=== PATIENT | female | born 1975 | race Caucasian/White ===

== ENCOUNTER 2024-12-19 16:22 | Outpatient (CLI) | payer OTHER, SELFPAY ==
--- NOTE | ~2024-12-19 | XR_ITS ---
HISTORY: pain in rt shoulder COMPARISON: None TECHNIQUE: 2 views of the right shoulder were performed FINDINGS: No acute fracture. The glenohumeral and acromioclavicular joint space is maintained The visualized portion of the adjacent right lung is clear. The humeral head is well seated within the glenoid fossa. IMPRESSION: No acute fracture or anterior dislocation. Reviewed, dictated and finalized at location A.
--- OUTSIDE RECORDS SUMMARY | 2024-12-19 16:33 | XMS_ITS | Encounter Summary ---
Author Organization [facility] Address [address] [place] [address] Care Team Providers Care Hoe Worker Name Role Phone Latasha Thomas [facility] Primary Care Provider + Hank Huang [facility] Primary Care Provide r Lashonda Ponce [facility] Primary Care Provider +1- [phone] Reason for Visit * Reason Onset Date Comments MEDICATION REFILL 04/24/2018 Encounter Details Date Type Department Care Team (Late st Contact Info) Description 04/24/2018 Refill [facility] [address] [address] Jennifer Leary, [facility] [address] [facility] [place] [address] MEDICATION REFILL Social History Tobacco Use Types Packs/Day Years Used Date Smoking Tobacco: Never Smokeless Tobacco: Never Alcohol Use Standard Drinks/Week Comments Yes 0 (1 standard drink = 0.6 oz pur e alcohol) Sex and Gender Information Value Date Recorded Sex Assigned at Female 01/17/2022 9:10 AM CDT Gender Identity Female 01/17/2022 9:10 AM CDT Sexual Orientation Straight 01/17/2022 9: 10 AM CDT documented as of this encounter Miscellaneous Notes * Telephone Encounter - Cynthia Alvarado - 04/25/2018 11:47 AM CDT ..Patient requesting refills for the following: OMEPRAZOLE 20 MG PO TBEC HARSH: 04/15/18 NOV: 05/13/18 Problem List Identified: office visit on 04/15/18 GERD Medication attached per refill protocol/guidlines for further review by provider yes PCP / Resident PCP verified yes Allergies Reviewed yes Pharmacy Reviewed yes Medication details entered yes Please review prior to authorization. Office visit within the last six months yes if not within last 6 months route to GIM-scheduling as well. Office visit greater than 12 months no routed to GIM scheduling ONLY no. * Telephone Encounter - Cynthia Alvarado - 04/25/2018 11:46 AM CDTFrom: Christine Juarez To: Jennifer Leary APRN-CNP Sent: 04/24/2018 12:28 PM CDT Subject: Medication Renewal Request Original authorizing provider: OANH Palomino would like a refill of the following medications: omeprazole EC (PRILOSEC OTC) 20 MG tablet [OANH Palomino] [facility] [id number] [place] [id number] [facility] Comment: documented in this encounter Plan of Treatment Not on file documented as of this encounter Visit Diagnoses Not on filedocumented in this encounter Care Teams Hoe Worker Relationship Specialty Start Date End Date Latasha Thomas APRN-CNP [facility] [place] [address] PCP - General 02/13/18 01/26/21 Hank Huang APRN-CNP [facility] [place] [address] PCP - General 01/27/21 10/23/21 Lashonda Ponce, SALES SUPERINTENDENT-STARCH DUMPER [facility] [place] [address] PCP - General 10/24/21 documented as of this encounter
--- OUTSIDE RECORDS SUMMARY | 2024-12-19 16:33 | XMS_ITS | Encounter Summary ---
Author Organization [facility] Address [address] [facility] [place] [address] Care Team Providers Care Power Truck Driver Name Role Phone Latasha Thomas [facility] Primary Care Provider + Hank Huang [facility] Primary Care Provide r Lashonda Ponce [facility] Primary Care Provider [phone]- [phone] Reason for Visit * Reason Onset Date Comments MEDICATION REFILL 12/03/2020 Encounter Details Date Type Department Care Team (Late st Contact Info) Description 12/03/2020 Refill [facility] [address] [facility] [address] [place] [address] Latasha Thomas, [facility] [address] [facility] [place] [address] MEDICATION REFILL Social History Tobacco Use Types Packs/Day Years Used Date Smoking Tobacco: Never Smokeless Tobacco: Never Alcohol Use Standard Drinks/Week Comments Yes 0 (1 standard drink = 0.6 oz pur e alcohol) Sex and Gender Information Value Date Recorded Sex Assigned at Female 01/17/2022 9:10 AM CDT Gender Identity Female 01/17/2022 9:10 AM CDT Sexual Orientation Straight 01/17/2022 9: 10 AM CDT COVID-19 Exposure Response Date Recorded In the last month, have you been in contact with someone who was confirmed or suspected to have Coronavirus / COVID-19? No / Unsure 11/10/2020 2:20 PM LEAD PORTFOLIO MANAGER documented as of this encounter Miscellaneous Notes * Telephone Encounter - Jud Whitehead - 12/07/2020 9:35 AM CDT 3RD LVM * Telephone Encounter - Jud Whitehead - 12/06/2020 3:29 PM CDT 1ST LVM 2ND MY CHART MESSAGE * Telephone Encounter - Brittany Smith MD - 12/03/2020 5:19 PM CDT Refilled x 1. Please help patient schedule appointment with new provider. * Telephone Encounter - Yasmeen Briceño RN - 12/03/2020 8:40 AM CDT Refill Request Christine Juarez bupropion HARSH: 02/16/20 (sheri) MANDY scheduled: none LRF: 07/28/19 Qty Disp: 180 # of refills: 3 Omeprazole LRF: 02/16/20 QTY: 90 # OF REFILLS: 1 Allergies: No Known Allergies Pended Medication Order: Requested Prescriptions Pending Prescriptions Disp Refills ??? buPROPion SR 12hr (WELLBUTRIN-SR) 150 MG tablet 180 tablet 3 Sig: Take 1 (one) tablet by mouth 2 times daily ??? omeprazole (PRILOSEC) 20 MG capsule 90 capsule 1 Sig: Take 1 (one) capsule by mouth daily before breakfast documented in this encounter Plan of Treatment Not on file documented as of this encounter Visit Diagnoses Diagnosis Depression with anxiety Dysthymic disorder documented in this encounter Care Teams Power Truck Driver Relationship Specialty Start Date End Date Latasha hTomas PAPER STEAMER-AIRLINE PILOT/FIRST OFFICER [address] [place] [address] PCP - General 02/13/18 01/26/21 Hank Huang APRN-AIRLINE PILOT/FIRST OFFICER [address] [place] [address] PCP - General 01/27/21 10/23/21 Lashonda Ponce, PAPER STEAMER-AIRLINE PILOT/FIRST OFFICER [address] [place] [id number] PCP - General 10/24/21 documented as of this encounter
--- OUTSIDE RECORDS SUMMARY | 2024-12-19 16:33 | XMS_ITS | Encounter Summary ---
Author Organization [facility] Address [address] [place] [address] Care Team Providers Care Vegetable Farming Supervisor Name Role Phone Jennifer Leary [facility] Primary Care Provider [phone] [phone] Latasha [facility] Primary Care Provider + Hank Huang [facility] Primary Care Provide r Lashonda Ponce [facility] Primary Care Provider +1- [phone] Reason for Visit * Reason Onset Date Comments MEDICATION REFILL 02/06/2018 Encounter Details Date Type Department Care Team (Late st Contact Info) Description 02/06/2018 Refill [facility] [address] [address] Jennifer Leary [facility] [address] [facility] [place] [address] MEDICATION REFILL Social History Tobacco Use Types Packs/Day Years Used Date Smoking Tobacco: Never Smokeless Tobacco: Never Sex and Gender Information Value Date Recorded Sex Assigned at Female 01/17/2022 9:10 AM CDT Gender Identity Female 01/17/2022 9:10 AM CDT Sexual Orientation Straight 01/17/2022 9: 10 AM CDT documented as of this encounter Miscellaneous Notes * Telephone Encounter - Cha Hernandez - 02/08/2018 10:29 AM CDT 2nd attempt Spoke with patient, scheduled with Latasha Villalobos NP 02/13/2018 * Telephone Encounter - Cha Hernandez - 02/07/2018 12:53 PM CDT 1st attempt to contact patient and assist in scheduling with new PCP. Voicemail left to contact [facility]. Number provided * Telephone Encounter - Oscar Duque - 02/06/2018 2:27 PM CDT Allergies addressed Pharmacy attached Refill request sent per protocol [facility] 10-26-17Jul No next appointment scheduled at this time. * Telephone Encounter - Negrita Tomas - 02/06/2018 7:58 AM CDT Refill request sent to provider per protocol jim reviewed [facility] 11/05/17 NOV NO FOLLOW UP APPOINTMENT MADE AT THIS TIME. documented in this encounter Plan of Treatment Not on file documented as of this encounter Visit Diagnoses Not on filedocumented in this encounter Care Teams Vegetable Farming Supervisor Relationship Specialty Start Date End Date Jennifer Leary APRN-CNP [address] [place] [address] PCP - General Nurse Practitioner 05/16/17 02/12/18 Latasha Thomas APRN-CNP [address] [place] [address] PCP - General 02/13/18 01/26/21 Hank Huang APRN-CNP [address] [place] [address] PCP - General 01/27/21 10/23/21 Lashonda Ponce APRN-FIRE PROTECTION EQUIPMENT TECHNICIAN [address] [place] [address] PCP - General 10/24/21 documented as of this encounter
--- OUTSIDE RECORDS SUMMARY | 2024-12-19 16:33 | XMS_ITS | Clinical Summary ---
Author Organization [facility] Address [address] [place] [id number] Care Team Providers Care Senior Scrum Master Name Role Phone Unavailable Primary Care Provider Unavailabl e Social History Tobacco Use Types Packs/Day Years Used Date Smoking Tobacco: Never Assessed Comments Unknown Sex and Gender Information Value Date Recorded Sex Assigned at Not on file Legal Sex Female 11:35 AM HOME EXTENSION AGENT Gender Identity Not on file Sexual Orientation Not on file Plan of Treatment Health Maintenance Due Date Last Done Comments Hepatitis C Virus (HCV) Screening 1973 TdaP Immunization 1973 Hepatitis B Immunization (1 of 3 - 19+ 3-dose series) 1992 Pap Smear 1994 Cervical Cancer Screening (CCS) 2003 HPV/Cotest 2003 Colonoscopy 2018 Colorectal Cancer Screening 2018 Cologuard 2023 Immunochemical Fecal Occult Blood 2023 Mammogram 2023 Pneumococcal Immunization (5 0+ years) (1 of 1 - PCV) 2023 Zoster Immunization (1 of 2) 2023 Influenza Immunization (#1) 2024 SARS-COV-2 Immunization (2023-25 season) 2024 11/23/2020, 10/21/2020 Respiratory Syncytial Virus (RSV) Immunization (Adult) (1 - 1-dose 75+ series) 2048 Meningococcal Immunization (ACWY) Aged Out No longer eligible b ased on patient's age to complete this topic Pneumococcal Immunization Combined Aged Out No longer eligible b ased on patient's age to complete this topic Rotavirus Immunization Aged Out No lo nger eligible based on patient's age to complete this topic
--- OUTSIDE RECORDS SUMMARY | 2024-12-19 16:33 | XMS_ITS | Encounter Summary ---
Author Organization [facility] Address [address] [place] [address] Care Team Providers Care Rubber Tester Name Role Phone Jennifer Leary [facility] Primary Care Provider [phone] -[phone] Latasha Thomas [facility] Primary Care Provider + Hank Huang [facility] Primary Care Provide r Lashonda Ponce [facility] Primary Care Provider [phone]- [phone] Reason for Visit * Reason Comments Refill Request Encounter Details Date Type Department Care Team (Late st Contact Info) Description 02/06/2018 Refill [facility] [address] [place] [address] Jennifer Leary ORNAMENTAL PLASTER [facility] [address] [facility] [place] [address] Refill Request Social History Tobacco Use Types Packs/Day Years Used Date Smoking Tobacco: Never Smokeless Tobacco: Never Sex and Gender Information Value Date Recorded Sex Assigned at Female 01/17/2022 9:10 AM CDT Gender Identity Female 01/17/2022 9:10 AM CDT Sexual Orientation Straight 01/17/2022 9: 10 AM CDT documented as of this encounter Plan of Treatment Not on file documented as of this encounter Visit Diagnoses Not on filedocumented in this encounter Care Teams Rubber Tester Relationship Specialty Start Date End Date Jennifer Leary APRN-COOK 3 PASTRY [facility] [place] [address] PCP - General Nurse Practitioner 05/16/17 02/12/18 Latasha Thomas APRN-COOK [address] [place] [address] PCP - General 02/13/18 01/26/21 Hank Huang APRN-COOK [address] [place] [address] PCP - General 01/27/21 10/23/21 Lashonda Ponce APRN-COOK [address] [place] [phone] PCP - General 10/24/21 documented as of this encounter
--- OUTSIDE RECORDS SUMMARY | 2024-12-19 16:33 | XMS_ITS | Encounter Summary ---
Author Organization [facility] Address [address] [place] [address] Care Team Providers Care Summer Nanny Name Role Phone Lashonda Ponce NEUROLOGY TEACHER-CONTACT WORKER LITHOGRAPHY Primary Care Provider [phone]- [phone] Reason for Visit * Reason Onset Date Comments Referral Request 02/15/2022 Encounter Details Date Type Department Care Team (Late st Contact Info) Description 02/15/2022 Telephone [facility] [address] [place], [place] [id number] Jacky Pack MD [address] [place] [address] Referral Request Social History Tobacco Use Types Packs/Day Years Used Date Smoking Tobacco: Former Cigarettes 0.5 16 1 - 2007 Smokeless Tobacco: Never Alcohol Use Standard Drinks/Week Comments Yes 0 (1 standard drink = 0.6 oz pur e alcohol) 4-5/month PHQ-2 Answer Date Recorded PHQ2 TOTAL SCORE 1 01/16/2022 Sex and Gender Information Value Date Recorded Sex Assigned at Female 01/17/2022 9:10 AM CDT Gender Identity Female 01/17/2022 9:10 AM CDT Sexual Orientation Straight 01/17/2022 9: 10 AM CDT documented as of this encounter Miscellaneous Notes * Telephone Encounter - Lakesha Donovan - 02/15/2022 11:39 AM CDT Patient needs order/ referral for Med Nutrition Therapy. Called the PT's insurance and it Is covered. documented in this encounter Plan of Treatment Not on file documented as of this encounter Visit Diagnoses Not on filedocumented in this encounter Care Teams Summer Nanny Relationship Specialty Start Date End Date Lashonda Ponce APRN-CONTACT WORKER LITHOGRAPHY [address] [place] [address] PCP - General 10/24/21 documented as of this encounter
--- OUTSIDE RECORDS SUMMARY | 2024-12-19 16:33 | XMS_ITS | Data Portability ---
Author Organization [facility] Address [address] [place] [address] Care Team Providers Care Accounts Payable Manager Name Role Phone BRANDEN HAYWOOD Primary Care Provider [phone] Assessment No assessment recorded. Plan of Treatment Reminders Order Date Submit Date Provider Last Modified By Organization Details Last Modified Time Details Appointments ANY 15 2024 08:15A Chivo POTTER PA-C Not available Not available Not available Lab CMP, serum or plasma 2024 025 [facility], [facility], [address], [place], [address], 12/12/2024 07:20:28 albumin/c reatinine , mass ratio, urine 2023 024 [facility], [address], [address], [place], [address], 09/09/2024 09:11:28 CBC w/ auto diff 2023 024 [facility], [address], [address], [place], [address], 09/09/2024 09:11:33 TSH, ultra-sen sitive, serum 2023 024 [facility], [address], [address], [place], [address], 09/09/2024 09:11:32 lipid panel, serum 2023 024 [facility], [address], [address], [place], [address], 09/09/2024 09:11:29 CMP, serum or plasma 2023 024 [facility], [address], [address], [place], [address], 09/09/2024 09:11:31 CMP, serum or plasma 2023 024 [facility], [address], [address], [place], [address], 06/12/2024 06:21:13 vaginal pathogens panel, OPAL+probe , vaginal fluid 2023 024 [facility], [address], [address], [place], [address], 01/18/2024 06:19:15 Referral physical therapist referral 2024 025 [facility], [address], [place], [address], 12/11/2024 15:35:19 Procedures None recorded. Surgeries None recorded. Imaging XR, shoulder, 2 or more view 2024 025 [facility] (Im[facility]), [address], [place], [address], 12/11/2024 13:57:07 MAMMO, screening , digital, bilateral 2023 024 [facility]), [address] [place], [address], 02/27/2024 09:31:44 Medication Orders pantopraz ole 40 mg tablet,de layed release 2024 025 [facility], [address] [place] [address], [id number], 12/10/2024 09:59:08 bupropion HCl SR 150 mg tablet,12 hr sustained -release 2024 025 [facility], [address] [place] [address], [id number], 12/10/2024 09:59:08 pantopraz ole 40 mg tablet,de layed release 2023 024 [facility], [address] [place] [address], [id number], 09/08/2024 10:03:25 lisinopri l 20 mg tablet 2023 024 [facility], [address] [place] [address], [id number], 09/08/2024 10:03:24 phentermi ne 37.5 mg tablet 2023 024 [facility], [address] [place] [address], [id number], 09/08/2024 10:25:45 bupropion HCl SR 150 mg tablet,12 hr sustained -release 2023 024 [facility], [address] [place] [address], [id number], 09/08/2024 10:03:25 phentermi ne 37.5 mg tablet 2023 024 [facility], [address] [place] [address], [id number], 10/15/2024 17:14:59 cetirizin e 10 mg tablet 2023 024 [facility], [address] [place] [address], [id number], 03/11/2024 09:39:08 fluticaso ne propionat e 50 mcg/actua tion nasal spray,karlie pension 2023 024 [facility], [address] [place] [address], [id number], 03/11/2024 09:39:06 phentermi ne 37.5 mg tablet 2023 024 [facility], [address] [place] [address], [id number], 03/11/2024 09:49:25 omeprazol e 20 mg capsule,d elayed release 2023 [facility], [address] [place] [address], [id number], 12/10/2024 09:56:26 lisinopri l 20 mg tablet 2023 024 [facility], [address] [place] [address], [id number], 03/11/2024 09:39:07 lisinopri l 20 mg tablet [address] [id number], [address], [place], [id number], 03/18/2024 10:17:08 bupropion HCl SR 150 mg tablet,12 hr sustained -release 2023 024 [facility], [address] [place] [address], [id number], 03/11/2024 09:39:09 nystatin 100,000 unit/gram topical powder 2023 025 [facility], [address] [place] [address], [id number], 12/10/2024 09:37:16 Patient TargetsNo targets recorded. Patient Instructions Encounter Date Encounter Id Patient Instructions Last Modified By Organization Details Last Modified Time 01/16/2024 [id number] body mass index: care instructions [email or web address] Not available 01/16/2024 17:09:50 learning about healthy weight Not available 01/16/2024 17:09:50 --Discussed with Dr. Radha garcia Not available 01/16/2024 19:45:05 06/11/2024 [id number] influenza (flu) vaccine: care instructions [email or web address] Not available 06/11/2024 09:36:07 A healthy lifestyle: care instructions [email or web address] Not available 06/11/2024 09:36:07 09/08/2024 [id number] When You Want to Lose Weight: Care Instructions [email or web address] Not available 09/08/2024 10:03:22 learning about mood disorders [email or web address] Not available 09/08/2024 10:03:22 12/10/2024 [id number] A healthy lifestyle: care instructions [email or web address] Not available 12/10/2024 09:59:05 Reason for Referral Physical Therapist Referral for Pain of right shoulder joint Referring Physician: Jeremy Potter, Family Medicine, Encounter Date: 12/10/2024 Results Created Date Observation Date Name Description Value Unit Range Abnormal Flag Note LastModifiedBy Organization Detail LastModifiedTime 01/16/2001/17/2024 NUSWA B VAGIN ITIS PLUS (VG+) atopobium vaginae Low - 0 score Not Available [facility] ([facility]) [address] [place], [address], 01/18/2024 06:19:15 01/16/2001/17/2024 NUSWA B VAGIN ITIS PLUS (VG+) bvab 2 Low - 0 score Not Available [facility] ([facility]) [address] [place], [address], 01/18/2024 06:19:15 01/16/2001/17/2024 NUSWA B VAGIN ITIS PLUS (VG+) megasphaera 1 Low - 0 score Calcu late total score by chuy jay the 3 indiv idual bacte rial vagin osis (BV) marke r score s toget her. Total score is inter prete d as follo ws: Total score 0-1: Indic ates the absen ce of BV. Total score 2: Indet ermin ate for BV. Addit ional clini anastasiya data shoul d be evalu ated to estab jose r a diagn osis. Total score 3-6: Indic ates the prese nce of BV. This test was devel oped and its perfo rmanc e milo cteri stics deter mined by [facility]. It has not been clear ed or appro marilyn by the Food and Drug Admin istra tion. Not Available [facility] ([facility]) [address] [place], [address], 01/18/2024 06:19:15 01/16/2001/17/2024 NUA B VAGIN ITIS PLUS (VG+) tam albicans, OPAL Negati ve negati ve Not Available [facility] ([facility]) [address] [place], [address], 01/18/2024 06:19:15 01/16/2001/17/2024 NUA B VAGIN ITIS PLUS (VG+) tam glabrata, OPAL Positi ve negati ve abnormal Publi shed data demon strat e that up to 65% of Delphine da glabr toribio ident ified in cases of vagin al delphine diasi s have decre ased susce ptibi lity to fluco nazol e. Not Available [facility] ([facility]) [address] [place], [address], 01/18/2024 06:19:15 01/16/2001/18/2024 NUSWA B VAGIN ITIS PLUS (VG+) trich vag by OPAL Negati ve negati ve Not Available [facility] ([facility]) [address] [place], [address], 01/18/2024 06:19:15 01/16/20 24 01/18/2024 NUSWA B VAGIN ITIS PLUS (VG+) chlamydia trachomatis, OPAL Negati ve negati ve Not Available [facility] ([facility]) [address] [facility], [place], [address], 01/18/2024 06:19:15 01/16/20 24 01/18/2024 NUSWA B VAGIN ITIS PLUS (VG+) neisseria gonorrhoeae, OPAL Negati ve negati ve Not Available [facility] ([facility]) [address] [facility], [place], [address], 01/18/2024 06:19:15 06/11/20 24 06/12/2024 COMP. METAB OLIC PANEL (14) glucose 125 mg/dL 70-99 above high normal Not Available [facility] ([facility]) [address] [facility], [place], [address], 06/12/2024 06:21:13 06/11/20 24 06/12/2024 COMP. METAB OLIC PANEL (14) BUN 11 mg/dL 6-24 Not Available [facility] ([facility]) [address] [place], [address], 06/12/2024 06:21:13 06/11/20 24 06/12/2024 COMP. METAB OLIC PANEL (14) creatinine 0.62 mg/dL 0.57-1 .00 Not Available [facility] ([facility]) [address] [place], [address], 06/12/2024 06:21:13 06/11/20 24 06/12/2024 COMP. METAB OLIC PANEL (14) eGFR 108 mL/mi n/1.7 3 >59 Not Available [facility] ([facility]) [address] [place], [address], 06/12/2024 06:21:13 06/11/20 24 06/12/2024 COMP. METAB OLIC PANEL (14) BUN/creatini ne ratio 18 9-23 Not Available [facility] ([facility]) [address], [place], [address], 06/12/2024 06:21:13 06/11/20 24 06/12/2024 COMP. METAB OLIC PANEL (14) sodium 143 mmol/ L 134-14 4 Not Available [facility] ([facility]) [address], [place], [address], 06/12/2024 06:21:13 06/11/20 24 06/12/2024 COMP. METAB OLIC PANEL (14) potassium 3.9 mmol/ L 3.5-5. 2 Not Available [facility] ([facility]) [address] [place], [address], 06/12/2024 06:21:13 06/11/20 24 06/12/2024 COMP. METAB OLIC PANEL (14) chloride 104 mmol/ L 96-106 Not Available [facility] ([facility]) [address], [place], [address], 06/12/2024 06:21:13 06/11/20 24 06/12/2024 COMP. METAB OLIC PANEL (14) carbon dioxide, total 23 mmol/ L 20-29 Not Available [facility] ([facility]) [address] [facility] [place], [address], 06/12/2024 06:21:13 06/11/20 24 06/12/2024 COMP. METAB OLIC PANEL (14) calcium 9.8 mg/dL 8.7-10 .2 Not Available [facility] ([facility]) [address] [facility] [place], [address], 06/12/2024 06:21:13 06/11/20 24 06/12/2024 COMP. METAB OLIC PANEL (14) protein, total 6.6 g/dL 6.0-8. 5 Not Available [facility] ([facility]) [address] [facility] [place], [address], 06/12/2024 06:21:13 06/11/20 24 06/12/2024 COMP. METAB OLIC PANEL (14) albumin 4.4 g/dL 3.9-4. 9 Not Available [facility] ([facility]) [address] [facility], [place], [address], 06/12/2024 06:21:13 06/11/20 24 06/12/2024 COMP. METAB OLIC PANEL (14) globulin, total 2.2 g/dL 1.5-4. 5 Not Available [facility] ([facility]) [address] [facility], [place], [address], 06/12/2024 06:21:13 06/11/20 24 06/12/2024 COMP. METAB OLIC PANEL (14) bilirubin, total 0.2 mg/dL 0.0-1. 2 Not Available [facility] ([facility]) [address] [facility], [place], [address], 06/12/2024 06:21:13 06/11/20 24 06/12/2024 COMP. METAB OLIC PANEL (14) alkaline phosphatase 117 IU/L 44-121 Not Available [facility]) [address] [facility], [place], [address], 06/12/2024 06:21:13 06/11/20 24 06/12/2024 COMP. METAB OLIC PANEL (14) AST (SGOT) 18 IU/L 0-40 Not Available [facility] ([facility]) [address] [facility], [place], [address], 06/12/2024 06:21:13 06/11/20 24 06/12/2024 COMP. METAB OLIC PANEL (14) ALT (SGPT) 30 IU/L 0-32 Not Available [facility] ([facility]) [address] [facility], [place], [address], 06/12/2024 06:21:13 09/08/20 24 09/09/2024 ALBUM IN/CR EATIN INE RATIO ,URIN E creatinine, urine 119.2 mg/dL notest ab. Not Available [facility] ([facility]) [address] [facility], [place], [address], 09/09/2024 09:11:28 09/08/20 24 09/09/2024 ALBUM IN/CR EATIN INE RATIO ,URIN E albumin, urine 8.8 ug/mL notest ab. Not Available [facility] ([facility]) [address] [facility], [place], [address], 09/09/2024 09:11:28 09/08/20 24 09/09/2024 ALBUM IN/CR EATIN INE RATIO ,URIN E alb/creat ratio 7 mg/g_ creat 0-29 Myriam l: 0 - 29 Moder ately incre ased: 30 - 300 Sever shiv incre ased: >300 Not Available [facility] ([facility]) [address] [facility], [place], [address], 09/09/2024 09:11:28 09/08/20 24 09/09/2024 LIPID PANEL cholesterol, total 138 mg/dL 100-19 9 Not Available [facility] ([facility]) [address] [facility], [place], [address], 09/09/2024 09:11:29 09/08/20 24 09/09/2024 LIPID PANEL triglyceride s 89 mg/dL 0-149 Not Available [facility] ([facility]) [address] [place], [address], 09/09/2024 09:11:29 09/08/20 24 09/09/2024 LIPID PANEL HDL cholesterol 43 mg/dL >39 Not Available [facility]) [address] [place], [address], 09/09/2024 09:11:29 09/08/20 24 09/09/2024 LIPID PANEL VLDL cholesterol anastasiya 17 mg/dL 5-40 Not Available [facility] ([facility]) [address] [facility] [place], [address], 09/09/2024 09:11:29 09/08/20 24 09/09/2024 LIPID PANEL LDL chol calc ([facility]) 78 mg/dL 0-99 Not Available [facility]) [address] [facility] [place], [address], 09/09/2024 09:11:29 09/08/20 24 09/09/2024 COMP. METAB OLIC PANEL (14) glucose 97 mg/dL 70-99 Not Available [facility] ([facility]) [address] [facility] [place], [address], 09/09/2024 09:11:31 09/08/20 24 09/09/2024 COMP. METAB OLIC PANEL (14) BUN 10 mg/dL 6-24 Not Available [facility] ([facility]) [address] [place], [address], 09/09/2024 09:11:31 09/08/20 24 09/09/2024 COMP. METAB OLIC PANEL (14) creatinine 0.64 mg/dL 0.57-1 .00 Not Available [facility] ([facility]) [address] [place], [address], 09/09/2024 09:11:31 09/08/20 24 09/09/2024 COMP. METAB OLIC PANEL (14) eGFR 108 mL/mi n/1.7 3 >59 Not Available [facility] ([facility]) [address] [place], [address], 09/09/2024 09:11:31 09/08/20 24 09/09/2024 COMP. METAB OLIC PANEL (14) BUN/creatini ne ratio 16 9-23 Not Available [facility] ([facility]) [address] [place], [address], 09/09/2024 09:11:31 09/08/20 24 09/09/2024 COMP. METAB OLIC PANEL (14) sodium 142 mmol/ L 134-14 4 Not Available [facility] ([facility]) [address] [place], [address], 09/09/2024 09:11:31 09/08/20 24 09/09/2024 COMP. METAB OLIC PANEL (14) potassium 4.6 mmol/ L 3.5-5. 2 Not Available [facility] ([facility]) [address] [place], [address], 09/09/2024 09:11:31 09/08/20 24 09/09/2024 COMP. METAB OLIC PANEL (14) chloride 103 mmol/ L 96-106 Not Available [facility] ([facility]) [address] [facility] [place], [address], 09/09/2024 09:11:31 09/08/20 24 09/09/2024 COMP. METAB OLIC PANEL (14) carbon dioxide, total 25 mmol/ L 20-29 Not Available [facility] ([facility]) [address] [facility] [place], [address], 09/09/2024 09:11:31 09/08/20 24 09/09/2024 COMP. METAB OLIC PANEL (14) calcium 9.5 mg/dL 8.7-10 .2 Not Available [facility] ([facility]) [address] [facility] [place], [address], 09/09/2024 09:11:31 09/08/20 24 09/09/2024 COMP. METAB OLIC PANEL (14) protein, total 6.4 g/dL 6.0-8. 5 Not Available [facility] ([facility]) [address] [facility] [place], [address], 09/09/2024 09:11:31 09/08/20 24 09/09/2024 COMP. METAB OLIC PANEL (14) albumin 4.4 g/dL 3.9-4. 9 Not Available [facility] ([facility]) [address] [facility], [place], [address], 09/09/2024 09:11:31 09/08/20 24 09/09/2024 COMP. METAB OLIC PANEL (14) globulin, total 2.0 g/dL 1.5-4. 5 Not Available [facility] ([facility]) [address] [facility], [place], [address], 09/09/2024 09:11:31 09/08/20 24 09/09/2024 COMP. METAB OLIC PANEL (14) bilirubin, total 0.2 mg/dL 0.0-1. 2 Not Available [facility] ([facility]) [address] [facility], [place], [address], 09/09/2024 09:11:31 09/08/20 24 09/09/2024 COMP. METAB OLIC PANEL (14) alkaline phosphatase 117 IU/L 44-121 Not Available [facility] ([facility]) [address] [facility], [place], [address], 09/09/2024 09:11:31 09/08/20 24 09/09/2024 COMP. METAB OLIC PANEL (14) AST (SGOT) 47 IU/L 0-40 above high normal Not Available [facility] ([facility]) [address] [facility], [place], [address], 09/09/2024 09:11:31 09/08/20 24 09/09/2024 COMP. METAB OLIC PANEL (14) ALT (SGPT) 76 IU/L 0-32 above high normal Not Available [facility] ([facility]) [address] [facility], [place], [address], 09/09/2024 09:11:31 09/08/20 24 09/09/2024 TSH RFX ON ABNOR MAL TO FREE T4 TSH 2.290 uIU/m L 0.450- 4.500 Not Available [facility] ([facility]) [address] [facility], [place], [address], 09/09/2024 09:11:32 09/08/20 24 09/09/2024 CBC WITH DIFFE RENTI AL/PL ATELE T WBC 11.5 x10e3 /uL 3.4-10 .8 above high normal Not Available [facility] ([facility]) [address] [facility], [place], [address], 09/09/2024 09:11:33 09/08/2009/09/2024 CBC WITH DIFFE RENTI AL/PL ATELE T RBC 4.80 x10e6 /uL 3.77-5 .28 Not Available [facility] ([facility]) [address] [place], [address], 09/09/2024 09:11:33 09/08/20 24 09/09/2024 CBC WITH DIFFE RENTI AL/PL ATELE T hemoglobin 13.6 g/dL 11.1-1 5.9 Not Available [facility] ([facility]) [address] [place], [address], 09/09/2024 09:11:33 09/08/20 24 09/09/2024 CBC WITH DIFFE RENTI AL/PL ATELE T hematocrit 41.9 % 34.0-4 6.6 Not Available [facility] ([facility]) [address] [place], [address], 09/09/2024 09:11:33 09/08/20 24 09/09/2024 CBC WITH DIFFE RENTI AL/PL ATELE T MCV 87 fL 79-97 Not Available [facility] ([facility]) [address] [place], [address], 09/09/2024 09:11:33 09/08/20 24 09/09/2024 CBC WITH DIFFE RENTI AL/PL ATELE T MCH 28.3 pg 26.6-3 3.0 Not Available [facility] ([facility]) [address] [facility], [place], [address], 09/09/2024 09:11:33 09/08/20 24 09/09/2024 CBC WITH DIFFE RENTI AL/PL ATELE T MCHC 32.5 g/dL 31.5-3 5.7 Not Available [facility] ([facility]) [address] [facility], [place], [address], 09/09/2024 09:11:33 09/08/20 24 09/09/2024 CBC WITH DIFFE RENTI AL/PL ATELE T RDW 13.0 % 11.7-1 5.4 Not Available [facility] ([facility]) [address] [facility], [place], [address], 09/09/2024 09:11:33 09/08/20 24 09/09/2024 CBC WITH DIFFE RENTI AL/PL ATELE T platelets 477 x10e3 /uL 150-45 0 above high normal Not Available [facility] ([facility]) [address] [facility], [place], [address], 09/09/2024 09:11:33 09/08/20 24 09/09/2024 CBC WITH DIFFE RENTI AL/PL ATELE T neutrophils 55 % notest ab. Not Available [facility] ([facility]) [address] [place], [address], 09/09/2024 09:11:33 09/08/20 24 09/09/2024 CBC WITH DIFFE RENTI AL/PL ATELE T lymphs 38 % notest ab. Not Available [facility] ([facility]) [address] [place], [address], 09/09/2024 09:11:33 09/08/20 24 09/09/2024 CBC WITH DIFFE RENTI AL/PL ATELE T monocytes 5 % notest ab. Not Available [facility] ([facility]) [address] [facility], [place], [address], 09/09/2024 09:11:33 09/08/20 24 09/09/2024 CBC WITH DIFFE RENTI AL/PL ATELE T eos 1 % notest ab. Not Available [facility] ([facility]) [address] [facility], [place], [address], 09/09/2024 09:11:33 09/08/20 24 09/09/2024 CBC WITH DIFFE RENTI AL/PL ATELE T basos 1 % notest ab. Not Available [facility] ([facility]) [address] [facility], [place], [address], 09/09/2024 09:11:33 09/08/20 24 09/09/2024 CBC WITH DIFFE RENTI AL/PL ATELE T neutrophils (absolute) 6.3 x10e3 /uL 1.4-7. 0 Not Available [facility] ([facility]) [address] [facility], [place], [address], 09/09/2024 09:11:33 09/08/20 24 09/09/2024 CBC WITH DIFFE RENTI AL/PL ATELE T lymphs (absolute) 4.3 x10e3 /uL 0.7-3. 1 above high normal Not Available [facility] ([facility]) [address] [facility], [place], [address], 09/09/2024 09:11:33 09/08/20 24 09/09/2024 CBC WITH DIFFE RENTI AL/PL ATELE T monocytes(ab solute) 0.6 x10e3 /uL 0.1-0. 9 Not Available [facility] ([facility]) [address] [facility], [place], [address], 09/09/2024 09:11:33 09/08/20 24 09/09/2024 CBC WITH DIFFE RENTI AL/PL ATELE T eos (absolute) 0.1 x10e3 /uL 0.0-0. 4 Not Available [facility] ([facility]) [address] [place], [address], 09/09/2024 09:11:33 09/08/20 24 09/09/2024 CBC WITH DIFFE RENTI AL/PL ATELE T baso (absolute) 0.1 x10e3 /uL 0.0-0. 2 Not Available [facility] ([facility]) [address] [facility], [place], [address], 09/09/2024 09:11:33 09/08/20 24 09/09/2024 CBC WITH DIFFE RENTI AL/PL ATELE T immature granulocytes 0 % notest ab. Not Available [facility] ([facility]) [address] [facility], [place], [address], 09/09/2024 09:11:33 09/08/20 24 09/09/2024 CBC WITH DIFFE RENTI AL/PL ATELE T immature grans (abs) 0.0 x10e3 /uL 0.0-0. 1 Not Available [facility] ([facility]) [address] [place], [address], 09/09/2024 09:11:33 09/08/20 24 09/09/2024 CBC WITH DIFFE RENTI AL/PL ATELE T hematology comments: NOTE: Verif ied by micro celestino esparzai jose elias n. Not Available [facility] ([facility]) [address] [facility], [place], [address], 09/09/2024 09:11:33 12/12/1912/12/2024 COMP. METAB OLIC PANEL (14) glucose 95 mg/dL 70-99 Not Available [facility] ([facility]) [address] [place], [address], 12/12/2024 07:20:28 12/12/19 12/12/2024 COMP. METAB OLIC PANEL (14) BUN 16 mg/dL 6-24 Not Available [facility] ([facility]) [address] [place], [address], 12/12/2024 07:20:28 12/12/19 25 12/12/2024 COMP. METAB OLIC PANEL (14) creatinine 0.57 mg/dL 0.57-1 .00 Not Available [facility] ([facility]) [address] [place], [address], 12/12/2024 07:20:28 12/12/19 25 12/12/2024 COMP. METAB OLIC PANEL (14) eGFR 110 mL/mi n/1.7 3 >59 Not Available [facility] ([facility]) [address] [place], [address], 12/12/2024 07:20:28 12/12/19 25 12/12/2024 COMP. METAB OLIC PANEL (14) BUN/creatini ne ratio 28 9-23 above high normal Not Available [facility] ([facility]) [address] [place], [address], 12/12/2024 07:20:28 12/12/19 25 12/12/2024 COMP. METAB OLIC PANEL (14) sodium 144 mmol/ L 134-14 4 Not Available [facility] ([facility]) [address] [place], [address], 12/12/2024 07:20:28 12/12/19 25 12/12/2024 COMP. METAB OLIC PANEL (14) potassium 5.1 mmol/ L 3.5-5. 2 Not Available [facility] ([facility]) [address] [place], [address], 12/12/2024 07:20:28 12/12/19 25 12/12/2024 COMP. METAB OLIC PANEL (14) chloride 104 mmol/ L 96-106 Not Available [facility] ([facility]) [address] [place] [address], [place], [address], 12/12/2024 07:20:28 12/12/19 25 12/12/2024 COMP. METAB OLIC PANEL (14) carbon dioxide, total 25 mmol/ L 20-29 Not Available [facility] ([facility]) [address] [place], [address], 12/12/2024 07:20:28 12/12/19 25 12/12/2024 COMP. METAB OLIC PANEL (14) calcium 10.0 mg/dL 8.7-10 .2 Not Available [facility] ([facility]) [address] [place], [address], 12/12/2024 07:20:28 12/12/19 25 12/12/2024 COMP. METAB OLIC PANEL (14) protein, total 6.7 g/dL 6.0-8. 5 Not Available [facility] ([facility]) [address] [place], [address], 12/12/2024 07:20:28 12/12/19 25 12/12/2024 COMP. METAB OLIC PANEL (14) albumin 4.5 g/dL 3.8-4. 9 Not Available [facility] ([facility]) [address] [place], [address], 12/12/2024 07:20:28 12/12/19 25 12/12/2024 COMP. METAB OLIC PANEL (14) globulin, total 2.2 g/dL 1.5-4. 5 Not Available [facility] ([facility]) [address] [place], [address], 12/12/2024 07:20:28 12/12/19 25 12/12/2024 COMP. METAB OLIC PANEL (14) bilirubin, total 0.3 mg/dL 0.0-1. 2 Not Available [facility] ([facility]) [address] [place], [address], 12/12/2024 07:20:28 12/12/19 25 12/12/2024 COMP. METAB OLIC PANEL (14) alkaline phosphatase 125 IU/L 44-121 above high normal Not Available [facility] ([facility]) [address] [place], [address], 12/12/2024 07:20:28 12/12/19 25 12/12/2024 COMP. METAB OLIC PANEL (14) AST (SGOT) 17 IU/L 0-40 Not Available [facility] ([facility]) [address] [place], [address], 12/12/2024 07:20:28 12/12/19 25 12/12/2024 COMP. METAB OLIC PANEL (14) ALT (SGPT) 19 IU/L 0-32 Not Available [facility] ([facility]) [address] [place], [address], 12/12/2024 07:20:28 01/14/20 24 01/14/2024 XR, hand, 3 or more view No observ ation record ed. [facility] [address] [place], [address], 01/15/2024 12:24:58 02/27/20 24 02/26/2024 MAMMO , scree bonita, digit al, bilat eral No observ ation record ed. [facility] [address] [place], [address], 02/27/2024 11:47:06 Result Notes Documentation Provider Name and Address Organization Details Recorded Time Mammo, Screening, Digital, Bilateral : Mammogram Mammogram Right: normal Left: normal Margoth Mckoy RN [facility], [place] - [facility] 02/27/2024 11:47:06 Problems Name Problem SNOMED Code Status Onset Date Resolution Date Notes Provider Name and Address Organization Details Recorded Time Essential hypertension 74857045 Active 2022 JEREMY POTTER PA-C Attn: Accountin g,[address] [facility], [place], [address], [place] - [facility] 4 09:18:02 Allergic rhinitis 74753869 Active 2022 BENEDICT FELDMAN Attn: Accountcarlo g,[address] [facility], [place], [address], [place] [facility] 3 20:13:50 Dyspnea 418320463 Active 2022 BENEDICT FELDMAN Attn: Accountin g,[address] [facility], [place], [address], [place] [facility] 3 20:13:53 History of total hysterectomy 768039444 Active 2022 BENEDICT FELDMAN Attn: Accountcarlo g,[address] [facility], [place], [address], [place] [facility] 3 20:13:56 Ex-smoker 0867615 Active 2022 BENEDICT FELDMAN Attn: Accountin g,[address] [facility], [place], [address], [place] [facility] 3 20:13:57 Morbid obesity 559331446 Active 2022 JEREMY POTTER PA-C Attn: Accountin g,[address] [facility], [place], [address], [place] [facility] 4 09:18:11 Depressive disorder 27400591 Active JEREMY POTTER PA-C Attn: Accountin g,[address] [facility], [place], [address], [place] [facility] 4 09:18:38 Gastroesophage al reflux disease 322028591 Active JEREMY POTTER PA-C Attn: Accountin g,[address] [facility], [place], [address], [place] [facility] 4 10:01:37 Multiple joint pain 51891223 Active Abigail Hernandez MD Attn: Accountin g,[address] [facility], [place], [address], [facility] - [facility] 6 11:38:06 Problem Notes None recorded. Procedures Surgical History Date Name Laterality Status Provider Name and Address Organization Details Recorded Time 09/17/19 Total hysterectomy completed BENEDICT FELDMAN Attn: Accounting, [address] [facility], [place], [address], [facility] - [facility] 10/17/2022 20:10:59 Tonsillectomy completed Lashonda Moran MA [place] - [place] 03/16/2016 14:20:46 Cholecystectomy completed Aria Colon MA [place] - [facility] 10/17/2022 08:42:27 Imaging Results Imaging Date Name Status LastModified by Organiz ation Details LastModified Time 01/14/2024 XR, hand, 3 or more view completed [facility] [address] [place], [address], 01/15/2024 12:24:58 02/26/2024 MAMMO, screening, digital, bilateral completed [facility] [address] [place], [address], 02/27/2024 11:47:06 Procedure Notes None recorded. Medical Equipment None Reported. Allergies No known drug allergies Medications Name Sig Start Date Stop Date Status Note LastModified by Organization Details LastModified Time bupropion HCl SR 150 mg tablet,12 hr sustained-r elease Take 1 tablet by mouth twice daily for 90 days 2024 active Not Available Not Available Not Avai lable ketoconazol e 2 % shampoo APPLY TO THE AFFECTED AREA(S), LATHER, LEAVE IN PLACE FOR 5 MINUTES, AND THEN RINSE OFF WITH WATER BY TOPICAL ROUTE ONCE DAILY X 1-3 DAYS active Not Available Not Available No t Available cetirizine 10 mg tablet TAKE 1 TABLET DAILY IN THE MORNING 2024 active Not Available Not Available Not Avai lable Claritin 10 mg tablet Take 1 tablet every day by oral route. 10/17 completed Not Available Not Available Not Available fluconazole 200 mg tablet Take 2 tablets every day by oral route for 1 day. 03/11 completed Not Available Not Available Not Available lisinopril 20 mg tablet Take 1 tablet every day by oral route for 90 days. 2023 active Not Available Not Available Not Avai lable Zithromax Z-Randell 250 mg tablet TAKE 2 TABLETS (500 MG) BY ORAL ROUTE ONCE DAILY FOR 1 DAY THEN 1 TABLET (250 MG) BY ORAL ROUTE ONCE DAILY FOR 4 DAYS 12/10 completed Not Available Not Available Not Available phentermine 15 mg capsule TAKE ONE CAPSULE BY MOUTH EVERY MORNING 12/09 completed Not Available Not Available Not Available metronidazo le 500 mg tablet Take 1 tablet twice a day by oral route as directed for 7 days. 06/29 completed Not Available Not Available Not Available phentermine 37.5 mg tablet Take 1 tablet every day by oral route for 30 days, for weightlos s. 2024 active Not Available Not Available Not Avai lable omeprazole 40 mg capsule,del ayed release Take 1 capsule every day by oral route before meals. 10/17 completed Not Available Not Available Not Available tramadol 50 mg tablet Take 1 tablet every 8 hours by oral route as needed. 10/17 completed Not Available Not Available Not Available benzonatate 100 mg capsule Take 1 capsule 3 times a day by oral route as needed for 7 days. 10/24 completed Not Available Not Available Not Available pantoprazol e 40 mg tablet,raz yed release Take 1 tablet every day by oral route for 30 days. 2024 active Not Available Not Available Not Avai lable lisinopril 10 mg tablet Take 1 tablet every day by oral route as directed for 90 days. 11/01 completed Not Available Not Available Not Available omeprazole 20 mg capsule,del ayed release Take 1 capsule every day by oral route as needed for 90 days. 12/10 completed Not Available Not Available Not Available nystatin 100,000 unit/gram topical powder APPLY TO THE AFFECTED AREA(S) BY TOPICAL ROUTE 2 TIMES PER DAY 12/10 completed Not Available Not Available Not Available albuterol sulfate HFA 90 mcg/actuati on aerosol inhaler 03/26 completed Not Available Not Available Not Available fluticasone propionate 50 mcg/actuati on nasal spray,suspe nsion [place] 1 spray every day by intranasa l route as directed for 30 days. active Not Available Not Available No t Available naproxen 500 mg tablet TAKE ONE TABLET BY MOUTH TWICE A DAY WITH MEALS FOR JOINT PAIN 10/17 completed Not Available Not Available Not Available amoxicillin 875 mg-potassiu m clavulanate 125 mg tablet Take 1 tablet every 12 hours by oral route as directed for 7 days. 10/24 completed Not Available Not Available Not Available escitalopra m 10 mg tablet Take 1 tablet every day by oral route in the morning for 90 days. 03/11 completed Not Available Not Available Not Available peg 3350-electr olytes 236 gram-22.74 gram-6.74 gram-5.86 gram solution 10/17 completed Not Available Not Available Not Available Victoza 2-Randell 0.6 mg/0.1 mL (18 mg/3 mL) subcutaneou s pen injector INJECT 1.2MG SUBCUTANE OUSLY EVERY DAY DIRECTED 10/24 completed Not Available Not Available Not Available TRUEplus Pen Needle 31 gauge x 1/4 USE DIRECTED TO INJECT victoza ONCE daily 10/24 completed Not Available Not Available Not Available Ozempic 0.25 mg or 0.5 mg (2 mg/1.5 mL) subcutaneou s pen injector INJECT 0.5 MG UNDER THE SKIN EVERY WEEK DIRECTED 01/05 completed Not Available Not Available Not Available Vitals Date Recorded Body height Body mass index (BMI) Body weight Oxygen saturation Oxygen saturation in Arterial blood by Pulse oximetry Heart rate Systolic blood pressure Diastolic blood pressure Provider Name and Address Organization Details Last Updated DateTime 4 158.75 cm 46.3 kg/m2 551694. 04 g 97 % 97 % 87 /min 128 mm[Hg] 78 mm[Hg] Melissa Garzon MA [place] - [facility] 4 16:35:53 Date Recorded Body height Body mass index (BMI) Body weight Oxygen saturation Oxygen saturation in Arterial blood by Pulse oximetry Heart rate Systolic blood pressure Diastolic blood pressure Provider Name and Address Organization Details Last Updated DateTime 4 158.75 cm 45.7 kg/m2 794777. 74 g 96 % 96 % 84 /min 138 mm[Hg] 88 mm[Hg] Melissa Garzon MA [facility] 4 09:15:10 Date Recorded Body height Body mass index (BMI) Body weight Oxygen saturation Oxygen saturation in Arterial blood by Pulse oximetry Heart rate Systolic blood pressure Diastolic blood pressure Provider Name and Address Organization Details Last Updated DateTime 4 158.75 cm 46.1 kg/m2 645994. 08 g 96 % 96 % 72 /min 124 mm[Hg] 78 mm[Hg] Melissa Garzon MA [facility] 4 09:09:39 Date Recorded Body height Body mass index (BMI) Body weight Oxygen saturation Oxygen saturation in Arterial blood by Pulse oximetry Heart rate Systolic blood pressure Diastolic blood pressure Provider Name and Address Organization Details Last Updated DateTime 4 158.75 cm 43.5 kg/m2 514834. 56 g 98 % 98 % 95 /min 122 mm[Hg] 68 mm[Hg] Nika Benson MA [facility] 4 09:47:04 Date Recorded Body height Body mass index (BMI) Body weight Body temperature Oxygen saturation Oxygen saturation in Arterial blood by Pulse oximetry Heart rate Systolic blood pressure Diastolic blood pressure Provider Name and Address Organization Details Last Updated DateTime 5 158.75 cm 43.9 kg/m2 974519. 54 g 98.2 [degF] 96 % 96 % 82 /min 130 mm[Hg] 84 mm[Hg] Melissa Garzon MA [facility] 5 09:16:52 Social History Question Answer Notes LastModified by Organizat ion Details LastModified Time Tobacco Smoking Status Former Smoker ENRIKE Topete, [facility] 03/16/2016 14:20:46 Do You Have An Advance Directive? No Information not available 10/17/2022 What Is Your Level Of Alcohol Consumption? Occasional Information not available 10/17/2022 In The 14 Days Before Symptom Onset, Have You Had Close Contact With A Laboratory-confir med COVID-19 While That Case Was Ill? No Information not available 10/17/2022 In The 14 Days Before Symptom Onset, Have You Had Close Contact With A Person Who Is Under Investigation For COVID-19 While That Person Was Ill? No Information not available 10/17/2022 Have You Been To An Area Known To Be High Risk For COVID-19? No Information not available 10/17/2022 Are You Currently Employed? Yes Information not available 10/17/2022 What Was The Date Of Your Most Recent Tobacco Screening? 12/10/2024 [email or web address] Information not available 12/10/2024 What Is Your Relationship Status? Information not available 10/17/2022 Are You Sexually Active? No Information not available 10/17/2022 Do You Have Smoke And Carbon Monoxide Detectors In Your Home? Yes Information not available 10/17/2022 Are You Passively Exposed To Smoke? No Information no t available 10/17/2022 Do You Use Any Illicit Or Recreational Drugs? No Information not available 10/17/2022 Has Tobacco Cessation Counseling Been Provided? Yes Information not available 11/22/2022 On What Date Was Tobacco Cessation Counseling Provided? 09/08/2024 [email or web address] Information not available 09/08/2024 Do You Or Have You Ever Used Any Other Forms Of Tobacco Or Nicotine? No Information not available 10/17/2022 Sex: Female Functional Status None recorded. Mental Status None recorded. Family History Relationship Description Onset Age of this Age Resolved Age Notes LastModified by Organization Details LastModified Time Mother Asthma [email or web address] Not available 14:20:46 Mother Cerebrovascu lar accident mroyma Not available 14:20:46 Mother Diabetes mellitus mroyma Not available 2015 14:20:46 Mother Heart disease mroyma Not available 2015 14:20:46 Mother Hypercholest erolemia mroyma Not available 2015 14:20:46 Mother Hypertensive disorder mroyma Not available 2015 14:20:46 Father Alcoholism mroyma Not available 03/16/2016 14:20:46 Father Hypertensive disorder mroyma Not available 2015 14:20:46 Father Hypercholest erolemia mroyma Not available 2015 14:20:46 Father Carcinoma of prostate mroyma Not available 2015 14:20:46 Medical History Condition Response Acid Reflux (GERD) Y Depression Y Allergies Y Gynecological History Statement/Question Response If Post Menopausal, Age at Menopause 37 On BCP's at Conception? Y Menses Monthly N Age at Menarche 10 Current Control Method Hysterectom y Age at First Child 17 LMP Unknown Obstetrics History GPAL:G 1 P 1 0 0 1 Type Value Full Term 1 Living 1 Total 1 Immunizations Vaccine Type Date Status Note Provider Nam e and Address Organization Details Recorded Time COVID-19, mRNA, LNP-S, PF, 100 mcg/0.5mL dose or 50 mcg/0.25mL dose 1 completed ENRIKE Subramanian, [place] - [facility] 10/24/2023 08:40:02 COVID-19, mRNA, LNP-S, PF, 100 mcg/0.5mL dose or 50 mcg/0.25mL dose 1 completed ENRIKE Subram[place], [place] [facility] 10/24/2023 08:40:03 Influenza, split virus, quadrivalent, PF 4 completed ENRIKE [place] [facility] 10/24/2023 09:46:44 Tdap 4 completed ENRIKE [place]ram[place] [facility] 10/24/2023 09:47:08 Influenza, split virus, trivalent, preservative 4 completed ENRIKE Collazo, [place] [facility] 06/11/2024 09:52:10 Past Encounters Encounter ID Performer Location Encounter Start Date Encounter Closed Date Diagnosis/Indication Diagnosis SNOMED-CT Code Diagnosis ICD10 Code Diagnosis Note [id number] Yareli Macias is Herb (Adult Med) [address] [place] [phone] 03/16/2016 13:40:35 03/16/2016 14:53:58 Depressive disorder 88442652 F32.9 Gastroesop hageal reflux disease 408576524 K21.9 Adult [facility] th examination 094420123 Z00.00 [id number] Yareli Macias is Herb (Adult Med) [address] [place] [address] 04/27/2016 10:00:10 04/27/2016 11:44:42 Multiple joint pain 15695529 M25.50 M25.522 M25.511 M25.572 Gastroesop hageal reflux disease 231621596 K21.9 Doing well Depressive disorder 3548 9007 F32.9 [id number] Radhataniyaconrado Sonialia Estevez (Adult Med) [address] [place] [id number] 06/27/2016 16:50:22 06/27/2016 17:54:43 Shoulder pain 27093443 M25.511 Pain in elbow 51791707 M 25.646 [id number] BENEDICT FELDMAN (Adult Med) [address] [place] [phone] 10/17/2022 08:25:17 10/19/2022 11:15:37 Morbid obesity 020836502 E66.01 Last set of labs 11/07/21Int erested in weight loss medication in the futureAdvi sed decreased portion sizes, good food choices, limited eating out or fast food and eliminate soda and juice from diet. Advised physical activity daily and offered encouragem ent to continue with positive changes made so far.- start with labs- f/u for weight loss consult at next visit Depressive disorder 3545 7568 F32.A PHQ 2/9 was positive in the office today (10)Hx of depression and anxiety, has been on bupropion for years and recently started on escitalopr amDoing well currently on these medication s- c/w meds Gastroesop hageal reflux disease 801121003 K21.9 Well controlled with PPI as needed- c/w medication Adult heal th examination 358011635 Z00.00 47 year old female with a history of depression , GERD, HTN, and seasonal allergies presents today to establish care. Used to follow with PCP in [place]. Screening mammography 665599 Z12.31 Mammogram was completed in the 09/08/2021 - Provided patient with mammogram order, she understand s she needs to call and schedule appointmen t Screening for malignant neoplasm of colon 829973318 Z12.11 Colonoscop y completed 03/10/2022 - couple polyps removed- c/w f/u in 5-10 years per GI History of total hysterectomy 525047920 Z90.710 Hx of irregular, heavy bleeding s/p [facility] [place] [address] [facility] so unsure if having vaginal dryness, no major hot flashes- discussed symptoms of garland-menop ause/menop ause Ex-smoker 7344279 Z87.89 1 Quit smoking 2007, smoked x 10-15 years, smoked 1/2 PPD- keep up good work, continue without smoking Essential hypertension 52190329 I10 BP Today: 124/84c/w lisinopril 10 mg Discussed DASH dietAdvise d 30 minutes of exercise minimum dailyAdvis ed tobacco, alcohol, caffeine all increase BPAdvised goal for BP is <140/90Con tact office if BP is > 140/90 consistent lyDIscusse d consequenc es of HTN including kidney, eye, heart damage, stroke, and even RTC 6 months for BP check Allergic rhinitis 479942 04 J30.9 Well controlled , uses medication s as needed-c/w medication s Dyspnea 845021623 R06.00 History of SOB and [facility] the [facility] inhal[facility] but was not told if PFTs were abnormalAd mits to getting SOB with activity such as going up stairsDoes not use inhaler- will reach out for results [id number] BENEDICT FELDMAN (Adult Med) [address] [place] [address] 11/22/2022 15:09:38 11/23/2022 09:35:24 Morbid obesity 297665903 E66.01 BMI: 45.8Strugg led for many years, new diagnosis of pre-diabet es scares her, mother had diabetes and she dealt with a lot of complicati ons from that diagnosis. Has tried all different diets and is exhausted with continuous weight gain rather than weight loss - Interested in weight loss , discussed different options for weight loss today.- Advised decreased portion sizes, good food choices, limited eating out or fast food and eliminate soda and juice from diet. Advised physical activity daily and offered encouragem ent to continue with positive changes made so far.- start Ozempic, patient aware of pharmacy being low in stock with this medication but would still like to try because her sister has had great benefit- start 0.25 mg weekly x 1 month and then increase up to 0.5 mg- download [employer], will provide her with Macro goals to shoot for daily- drink at least 80-100 oz of water per day, give herself a daily step goal, and get good sleep at night- provided her with [facility] [employer] phone number, facebook page if interested in out of pocket weight help- f/u in 1 month Mixed anxi ety and depressive disorder 818232877 F41.8 Taking bupropion and escitalopr am currently, unsure if the escitalopr am is doing anything. Admits to more anxiety than anything but overall feels stable today- discussed options, plan to continue medication for now but possibly come off or change in the future [id number] BENEDICT FELDMAN (Adult Med) [address] [place] [address] 01/05/2023 09:00:12 01/09/2023 10:58:49 Morbid obesity 402575642 E66.01 BMI: 45.8Strugg led for many years, new diagnosis of pre-diabet es scares her, mother had diabetes and she dealt with a lot of complicati ons from that diagnosis. Has tried all different diets and is exhausted with continuous weight gain rather than weight loss Started on Ozempic at the last visit on 11/22/22. Completed 5 injections (2(0.25mg doses) and 3(0.5 mg doses)). She hasn't noticed any change while on the Ozempic. Denies feeling decreased appetite. No side effects. She continues to work on her diet with only eating meats and vegetables with no sweets or junk food. Also, remaining active with walking 2 mi/day and lifting weight a couple times per week.Gaine d 1 lb since last month. Ozempic is no longer covered under [employer] so will switch patient to Victoza. - Discontinu e Ozempic- Start Victoza 1.2 mg, patient aware this medication is a diabetes medication and SE profile for weight loss is less compared to Ozempic- f/u in 6 weeks Mixed anxi ety and depressive disorder 963766374 F41.8 Taking bupropion and escitalopr am currently, unsure if the escitalopr am is doing anything. Admits to more anxiety than anything but overall feels stable todayPHQ mildly positive in the office today- discussed options, plan to continue medication for now but possibly come off or change in the future Pain in ri ght hip joint [id number] 47562 M25.551 C/o right hip pain x3-4 weeks. She only has pain with flexion and external rotation of the right hip. Notes working out and lifting weights. She does a warm up before every workout but doesn't necessaril y stretch before each session. Rates the pain 6-7/10 and describes the pain as sharp. She hasn't taken anything at home for the pain.PE: Pain with flexion and internal rotation of right hip. Full ROM of the right hip/leg. - Educated patient on stretches she can do at home to improve the pain. Discussed taking 10-15 minutes before each workout to stretch even before warmups. Tinea corporis 66277977 B35.4 She has noticed a rash on her back, under her breast, and in the folds of her elbows over the last week. It's not itchy or painful. She hasn't tried any topicals. Denies any new soaps, detergents , perfumes, or lotions. She saw a dermatolog ist ~10 years ago for a similar rash. - Start ketoconazo le 2% shampoo, f/u in 6 weeks Essential hypertension 86554210 I10 BP Today: 150/90, ran out of her lisinopril 2 weeks agoc/w lisinopril 10 mg, requesting to be filled out express scripts Discussed DASH dietAdvise d 30 minutes of exercise minimum dailyAdvis ed tobacco, alcohol, caffeine all increase BPAdvised goal for BP is <140/90Con tact office if BP is > 140/90 consistent lyDIscusse d consequenc es of HTN including kidney, eye, heart damage, stroke, and even RTC 6 months for BP check [id number] BENEDICT FELDMAN (Adult Med) [address] [place] [address] 02/15/2023 11:00:36 02/15/2023 12:05:25 Essential hypertension 97588574 I10 BP today (02/15/23): 138/88; previous visit (01/05/23): 150/90c/w lisinopril 10 mg, requesting to be filled out express scripts Discussed DASH dietAdvise d 30 minutes of exercise minimum dailyAdvis ed tobacco, alcohol, caffeine all increase BPAdvised goal for BP is <140/90Con tact office if BP is > 140/90 consistent lyDIscusse d consequenc es of HTN including kidney, eye, heart damage, stroke, and even - Informed patient to take her BP at home and keep a log- F/U in 1 month for BP check; if still elevated, will increase lisinopril to 20 mg daily Morbid obesity 676586822 E66.01 02/15/23:Cur rently on Victoza 1.2 mg; SE: discussed she is having nausea, vomiting and diarrhea that wakes her up at night once a week- Lost 10 lbs since last month- No change in her diet or exercising patterns - Continue Victoza 1.2 mg, patient aware this medication is a diabetes medication and SE profile for weight loss is less compared to Ozempic- If nausea, vomiting, diarrhea becomes unbearable or changes, patient is to contact the office and we will either decrease dose or stop medication - f/u in 1 month Tinea corporis 42331359 B35.4 She has noticed a rash on her back, under her breast, and in the folds of her elbows over the last week. It's not itchy or painful. She hasn't tried any topicals. Denies any new soaps, detergents , perfumes, or lotions. She saw a dermatolog ist ~10 years ago for a similar rash. 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 - Informed patient to avoid exercises that are hard on her knees (no running, lunges, jumping jacks etc)- okay to take ibuprofen prn (for pain and inflammati on) and topical diclofenac gel (sample given today) which she can get OTC if she likes- If becomes worse, will discuss imaging or other options Nausea and vomiting 1692 1999 R11.2 New onset nausea, vomiting and diarrhea that wakes her up from sleep once a week since starting Victoza- Labs ordered; r/o pancreatit is - will contact patient with results once available Depression screening 171 260902 Z13.31 PHQ 2/9 was negative in office today (0 out of 27) [id number] BENEDICT FELDMAN (Adult Med) [facility] [place] [address] 03/26/2023 11:17:08 03/28/2023 12:14:53 Nausea and vomiting [id number] R11.2 New onset nausea, vomiting and diarrhea since starting Victoza that has since resolved.- will continue to monitor Essential hypertension 51403880 I10 BP today 130/80 (03/26/23) Discussed DASH dietAdvise d 30 minutes of exercise minimum dailyAdvis ed tobacco, alcohol, caffeine all increase BPAdvised goal for BP is <140/90Con tact office if BP is > 140/90 consistent lyDiscusse d consequenc es of HTN including kidney, eye, heart damage, stroke, and even - Informed patient to take her BP at home and keep a log- not increasing lisinopril at this point, c/w 10mg tablets Morbid obesity 076087873 E66.01 - Continue Victoza 1.2 mg, patient aware this medication is a diabetes medication and SE profile for weight loss is less compared to Ozempic- N/V resolved, down 4 more pounds- f/u in 1 month Increased frequency of urination 215471932 R35.0 Present since hysterecto my. Has been on medication in past for urgency, unsure of what specifical ly. States going to the bathroom at least once an hour. Not sexually active/no concern for STIs, denies dysuria.- urine overall normal, no infection- vaginal swab ordered- if negative, will restart low dose medication for OAB Depressive disorder 2196 0011 F32.A PHQ 2/9 negative in office today but history of positive in the office (10)Hx of depression and anxiety, has been on bupropion for years and recently started on escitalopr amDoing well currently on these medication s- c/w meds Gastroesop hageal reflux disease [id number] K21.9 Well controlled with PPI as needed- c/w medication Allergic rhinitis 147120 04 J30.9 Well controlled , uses medication s as needed-c/w medication s Tinea corporis 46531131 B35.4 She has noticed a rash on her back, under her breast, and in the folds of her elbows over the last week. It's not itchy or painful. She hasn't tried any topicals. Denies any new soaps, detergents , perfumes, or lotions. She saw a dermatolog ist ~10 years ago for a similar rash. 02/15/23: much improved today; slight erythema under breasts bilaterall y - Continue ketoconazo le 2% shampoo prn [id number] BASILIO BISWAS (Adult Med) [address] [place] [phone] 10/24/2023 08:26:16 11/02/2023 09:33:00 Essential hypertension 18425311 I10 BP today 134/82 (10/24/23) Discussed DASH dietAdvise d 30 minutes of exercise minimum dailyAdvis ed tobacco, alcohol, caffeine all increase BPAdvised goal for BP is <140/90Con tact office if BP is > 140/90 consistent lyDiscusse d consequenc es of HTN including kidney, eye, heart damage, stroke, and even - Informed patient to take her BP at home and keep a log- increasing Lisinopril 10mg to Lisinopril 20mg-RTC 6 weeks for f/u Morbid obesity 294927667 E66.01 - Patient stopped taking Victoza d/t inconsiste ncy of pharmacy having it- Increased 22 pounds since 03/26/23-Pt started going to gym, needs letter for FSA to pay for gym membership -Discussed phentermin e and side effects/be nefits of medication - will prescribe pending lab results-Wi ll draw labs today and call patient with results Depressive disorder 4289 2465 F32.A Patient states not feeling a difference with escitpalop merissa as secondary therapyWil l d/c escitalopr am for now and f/u in 6 weeks. Patient to taper dose, take medication every other day this week and then every 3 days next week to finally d/c Be physically active. Doing 30 minutes of exercise every day is good for your body and mind. Start slowly if you find it difficult to get started. If you already exercise, continue doing so. Plan something nice for yourself every day. Include activities you have enjoyed in the past. Get enough sleep. Eat a balanced diet. If you are not hungry, eat small snacks instead of large meals. Do not drink alcohol, use illegal drugs, or take medication s that your doctor has not prescribed . They may interfere with your treatment. Spend time with family and friends. It may be helpful to talk openly about your depression with people you trust. Take your medication s exactly as prescribed . Don't make important life decisions while you are depressed. Depression can change the way you think. You will be able to make better decisions when you feel better. Think positively . Challenge negative thoughts with statements like I am hopeful ; Things will get better ; and I can ask for the help I need. Write these statements down and read them often, even if you don't believe them yet. Be patient with yourself. It took time for your depression to develop and it will take time for your symptoms to improve. Don't assume too much or be too hard on yourself. Learn everything you can about depression from written and online materials. Check out behavioral health classes to learn more about how to deal with depression . Keep the numbers for these national suicide hotlines: 0-967-313- TALK (3-272-295 -0889) and 9-116-SUIC JING (). If you or someone you know talks about suicide or feels hopeless, seek help immediatel y. Gastroesop hageal reflux disease 913640917 K21.9 Well controlled with PPI as needed- c/w medication Allergic rhinitis 200889 04 J30.9 Well controlled , uses medication s as needed-c/w medication s Depression screening 171 312867 Z13.31 PHQ9- {{Negative Positive Mild Moder ate* Sever e}} (10 out of 27) Mental hea lth screening 246954866 Z13.39 GAD7- {{Negative * Positive Mild Mode rate Sever e}} (2 out of 21) Administra tion of influenza vaccine 59991274 Z23 Active or passive immunization 839948834 Z23 [id number] BASILIO BISWAS (Adult Med) [address] [place] [phone] 12/10/2023 08:59:29 12/12/2023 15:00:44 Depression screening 477966519 Z13.31 PHQ9- {{Negative Positive Mild Moder ate* Sever e}} (7 out of 27) Mental hea lth screening 829115418 Z13.39 GAD7- {{Negative * Positive Mild Mode rate Sever e}} (0 out of 21) Essential hypertension 60408371 I10 BP today: 122/78 Discussed DASH dietAdvise d 30 minutes of exercise minimum dailyAdvis ed tobacco, alcohol, caffeine all increase BPAdvised goal for BP is <140/90Con tact office if BP is > 140/90 consistent lyDiscusse d consequenc es of HTN including kidney, eye, heart damage, stroke, and even - Informed patient to take her BP at home and keep a log- C/W Lisinopril 20mg- pt just picked up 90 day prescripti on-RTC 3 months Morbid obesity 970023174 E66.01 - Increased 5 pounds since 10/24/23-D/C phentermin e 15mg daily-Star t phentermin e 37.5mg daily-Disc ussed ER precaution s with HTN- pt v/u-RTC 4 weeks for weight check [id number] BASILIO BISWAS (Adult Med) [address] [place] [phone] 01/09/2024 08:56:13 01/10/2024 10:04:36 Morbid obesity 751327854 E66.01 - -7 pounds since 12/10/23-C/ W phentermin e 37.5mg daily-Disc ussed ER precaution s with HTN- pt v/u- encouraged patient to keep up the good work-RTC 3 months f/u Pain in right hand 79372 16559 13019 M79.641 R hand pain/poppi ng with movementGe t XR hand done- will call patient with resultsWea r wrist splint Body mass index 40+ - severely obese 768998517 Z68.42 BMI 46.8 Advised decreased portion sizes, good food choices, limited eating out or fast food and eliminate soda and juice from diet. Advised physical activity daily and offered encouragem ent to continue with positive changes made so far. [id number] MD Herb Hanley (Adult Med) [address] [place] [phone] 01/16/2024 16:22:51 01/29/2024 16:24:48 Gynecologic examination 17905355 Z01.419 Normal pelvic exam todayNuswa b sample taken and sent to lab- will call patient with results Screening mammography of bilateral breasts [id number] 79465 Z12.31 Normal CBE done todayMammo gram ordered- will call patient with results Intertrigo of abdominal skin fold 756754209 L30.4 Keep area clean and dryUse nystatin powder TWICE daily Body mass index 40+ - severely obese 051206171 Z68.42 BMI 46.3 Advised decreased portion sizes, good food choices, limited eating out or fast food and eliminate soda and juice from diet. Advised physical activity daily and offered encouragem ent to continue with positive changes made so far. [id number] BASILIO BISWAS (Adult Med) [address] [place] [phone] 03/11/2024 08:54:44 03/18/2024 14:45:56 Essential hypertension 55513410 I10 BP today: 138/88 Discussed DASH dietAdvise d 30 minutes of exercise minimum dailyAdvis ed tobacco, alcohol, caffeine all increase BPAdvised goal for BP is <140/90Con tact office if BP is > 140/90 consistent lyDiscusse d consequenc es of HTN including kidney, eye, heart damage, stroke, and even - Informed patient to take her BP at home and keep a log- C/W Lisinopril 20mg- pt just picked up 90 day prescripti on-RTC 6 months Gastroesop hageal reflux disease 590117551 K21.9 Well controlled with PPI as needed- c/w medication Allergic rhinitis 401554 04 J30.9 Well controlled , uses medication s as needed-c/w medication s Depressive disorder 3570 6238 F32.A Be physically active. Doing 30 minutes of exercise every day is good for your body and mind. Start slowly if you find it difficult to get started. If you already exercise, continue doing so. Plan something nice for yourself every day. Include activities you have enjoyed in the past. Get enough sleep. Eat a balanced diet. If you are not hungry, eat small snacks instead of large meals. Do not drink alcohol, use illegal drugs, or take medication s that your doctor has not prescribed . They may interfere with your treatment. Spend time with family and friends. It may be helpful to talk openly about your depression with people you trust. Take your medication s exactly as prescribed . Don't make important life decisions while you are depressed. Depression can change the way you think. You will be able to make better decisions when you feel better. Think positively . Challenge negative thoughts with statements like I am hopeful ; Things will get better ; and I can ask for the help I need. Write these statements down and read them often, even if you don't believe them yet. Be patient with yourself. It took time for your depression to develop and it will take time for your symptoms to improve. Don't assume too much or be too hard on yourself. Learn everything you can about depression from written and online materials. Check out behavioral health classes to learn more about how to deal with depression . Keep the numbers for these national suicide hotlines: 0-104-582- TALK () and 8-262-SUIC JING (8-057-531 -0435). If you or someone you know talks about suicide or feels hopeless, seek help immediatel y. c/w buproprion Morbid obesity 812310733 E66.01 BMI 45.7- -4 pounds since 01/16/24-C/W phentermin e 37.5mg daily-Disc ussed ER precaution s with HTN- pt v/u- encouraged patient to keep up the good work-RTC 3 months f/u Depression screening 171 804998 Z13.31 PHQ9- {{Negative Positive Mild Moder ate* Sever e}} (3 out of 27) Mental hea lth screening 401875094 Z13.39 GAD7- {{Negative * Positive Mild Mode rate Sever e}} (3 out of 21) [id number] BASILIO BISWAS (Adult Med) [address] [place] [phone] 06/11/2024 08:53:13 06/13/2024 16:15:41 Morbid obesity 323297719 E66.01 BMI 46.1Patien t has not been taking medication for 2 months d/t not having any in stock.- +3 pounds since 03/11/24-C/ W phentermin e 37.5mg daily-Disc ussed ER precaution s with HTN- pt v/u- encouraged patient to keep up the good work-RTC 3 months f/u Depression screening 171 188594 Z13.31 PHQ9- {{Negative Positive Mild Moder ate* Sever e}} (6 out of 27) [facility] screening 647516276 Z13.39 GAD7- {{Negative * Positive Mild Mode rate Sever e}} (4 out of 21) Administra tion of influenza vaccine 31341669 Z23 [id number] BASILIO BISWAS (Adult Med) [address] [place] [phone] 09/08/2024 09:27:52 09/09/2024 13:39:08 Morbid obesity 553438689 E66.01 BMI 43.5Patien t has not been taking medication for 2 months d/t not having any in stock.- -15 pounds since 05/2024-C/W phentermin e 37.5mg daily-Disc ussed ER precaution s with HTN- pt v/u- encouraged patient to keep up the good work-RTC 3 months f/u Depressive disorder 2995 4239 F32.A Be physically active. Doing 30 minutes of exercise every day is good for your body and mind. Start slowly if you find it difficult to get started. If you already exercise, continue doing so. Plan something nice for yourself every day. Include activities you have enjoyed in the past. Get enough sleep. Eat a balanced diet. If you are not hungry, eat small snacks instead of large meals. Do not drink alcohol, use illegal drugs, or take medication s that your doctor has not prescribed . They may interfere with your treatment. Spend time with family and friends. It may be helpful to talk openly about your depression with people you trust. Take your medication s exactly as prescribed . Don't make important life decisions while you are depressed. Depression can change the way you think. You will be able to make better decisions when you feel better. Think positively . Challenge negative thoughts with statements like I am hopeful ; Things will get better ; and I can ask for the help I need. Write these statements down and read them often, even if you don't believe them yet. Be patient with yourself. It took time for your depression to develop and it will take time for your symptoms to improve. Don't assume too much or be too hard on yourself. Learn everything you can about depression from written and online materials. Check out behavioral health classes to learn more about how to deal with depression . Keep the numbers for these national suicide hotlines: 6-191-953- TALK (3-687-845 -3148) and 0-812-SUIC JING (7-430-136 -6159). If you or someone you know talks about suicide or feels hopeless, seek help immediatel y. c/w buproprion Essential hypertension 92731658 I10 BP today: 122/68 BP Goal: {{Less than 140/90* Le ss than 150/90}} BP Controlled : {{yes* no} } Healthy Weight: {{4'10= 91-118 lbs 4'11= 94-123 lbs 5'= 97-127 lbs 5'1= 100-131 lbs 5'2= 104-135* 5 '3= 107-140 lbs 5'4= 110-144 lbs 5'5= 115-149 lbs 5'6= 118-154 lbs 5'7= 121-158 lbs 5'8= 125-163 lbs 5'9= 128-168 lbs 5'10= 132-173 lbs 5'11= 136-178 lbs 6'= 140-183 lbs 6'1= 144-188 lbs 6'2= 148-193 lbs 6'3= 152-199 lbs 6'4= 156-204 lbs}} Discussed: Low sodium balanced diet, moderate exercise at least 3-4 times per week for an average of 40 minutes, limiting alcohol to 1 drink per day (F) or 2 drinks per day (M), and smoking cessation if currently smoking. Discussed DASH dietAdvise d 30 minutes of exercise minimum dailyAdvis ed tobacco, alcohol, caffeine all increase BPAdvised goal for BP is <140/90Con tact office if BP is > 140/90 consistent lyDiscusse d consequenc es of HTN including kidney, eye, heart damage, stroke, and even Next Visit: {{1 2 3 4 5 6* 7 8 9 10 11 12} }{{week(s) month(s)* }}- Informed patient to take her BP at home and keep a log- C/W Lisinopril 20mg- pt just picked up 90 day prescripti on Gastroesop hageal reflux disease 903186940 K21.9 Well controlled with PPI as needed- start pantoprazo le Depression screening 171 377573 Z13.31 PHQ9- {{Negative Positive Mild* Mode rate Sever e}} (7 out of 27) [facility] screening 333884613 Z13.39 GAD7- {{Negative * Positive Mild Mode rate Sever e}} (4 out of 21) [id number] BASILIO BISAWS (Adult Med) [address] [place] [phone] 12/10/2024 08:56:59 12/11/2024 13:01:18 Pain of right shoulder joint [id number] 5438922 M25.511 + empty canXR ordered- will wait on result to order MRIPT orderedC/w OTC tylenol PRN Liver enzy mes level above reference range 313643818 R74.01 Repeat labs then will discuss restarting phentermin e Morbid obesity 000806817 E66.01 BMI 43.9Patien t has not been taking medication for 2 months d/t not having any in stock.- +3 lbs since last OV-hold off on phentermin e until lab results-Di scussed ER precaution s with HTN- pt v/u- encouraged patient to keep up the good work Depressive disorder 0625 8890 F32.A Be physically active. Doing 30 minutes of exercise every day is good for your body and mind. Start slowly if you find it difficult to get started. If you already exercise, continue doing so. Plan something nice for yourself every day. Include activities you have enjoyed in the past. Get enough sleep. Eat a balanced diet. If you are not hungry, eat small snacks instead of large meals. Do not drink alcohol, use illegal drugs, or take medication s that your doctor has not prescribed . They may interfere with your treatment. Spend time with family and friends. It may be helpful to talk openly about your depression with people you trust. Take your medication s exactly as prescribed . Don't make important life decisions while you are depressed. Depression can change the way you think. You will be able to make better decisions when you feel better. Think positively . Challenge negative thoughts with statements like I am hopeful ; Things will get better ; and I can ask for the help I need. Write these statements down and read them often, even if you don't believe them yet. Be patient with yourself. It took time for your depression to develop and it will take time for your symptoms to improve. Don't assume too much or be too hard on yourself. Learn everything you can about depression from written and online materials. Check out behavioral health classes to learn more about how to deal with depression . Keep the numbers for these national suicide hotlines: 7-672-113- TALK (4-737-194 -3594) and 7-700-SUIC JING (3-594-596 -6029). If you or someone you know talks about suicide or feels hopeless, seek help immediatel y. c/w buproprion 150mg BIDPatient interested in titrating down- advised patient to c/w medication until he situation at home is better before we discuss/st art decreasing medication . Pt agreed with plan Gastroesop hageal reflux disease 510408937 K21.9 Well controlled with PPI as needed-c/w pantoprazo le Depression screening 171 391224 Z13.31 PHQ9- {{Negative Positive Mild* Mode rate Sever e}} (7 out of 27) Mental hea lth screening 232836291 Z13.39 GAD7- {{Negative Positive Mild Moder ate Severe *}} (16 out of 21) Health Concerns Section Related Observation LastModified by Organization Detai ls LastModified Time None Recorded Concern Status LastModified by Organization Details LastModified Time None Recorded Advance Directives Directive N: Payers Encounter Date Sequence Insurance Name Policy Number Policy Carlin Covered Member ID Carlin Member ID Guarantor Name 01/16/[address] [facility] [id number] Christine Juarez [id number] Christine Juarez 03/11/[address] [facility] [id number] Christine Juarez [id number] Christine Juarez 06/11/[address] [facility] [id number] Christine Juarez [id number] Christine Juarez 09/08/[address] [facility] [id number] Christine Juarez [id number] Christine Juarez 12/10/[address] [facility] [id number] hCristine Juarez [id number] Christine Juarez Notes Date Note Type Note Provider Name and Address Organization Details Recorded Time 01/16/2024 text/html 48 y/o F with h/o hysterectomy here for well woman exam. Pt denies any breast changes, any vaginal discharge, abdominal cramping, or bleeding. Denies urinary symptoms. Brodie Garcia MD Attn: Accounting[address] [place], [address], [facility] 01/16/2024 19:45:10 03/11/2024 text/html 48 y/o F here for f/u HTN. Pt states she has been out of medication x 1 week. Had difficulty with pharmacy getting medication. She needs refills on other meds as well. Doing well on medication when she was taking it daily. Denies SOB, CP, [place], N/V/D.Pt has been losing weight on weight loss medication. States has not been taking medication this week since she has not been on HTN medication d/t not wanting her BP to be higher. JEREMY POTTER PA-C Attn: [address]ing[address] [place], [address], [facility] 03/11/2024 09:39:24 06/11/2024 text/html 48 y/o F here for f/u weight loss. Pt states she has not been taking medication for 2 months d/t not having it in stock. She forgot to call back to check if they had it and they never called her back to tell her they had it in stock again. She denies any other issues at this time, wants to continue taking it as she was seeing good results with it. JEREMY POTTER PA-C Attn: Accounting[address] [place], [address], [facility] 06/11/2024 09:36:35 09/08/2024 text/html Hypertension F/UReported bypatient.Associated Symptoms:no dizziness; no lightheadedness; no chest pain; no shortness of breath; no palpitations; no edema; no calf pain with exertion Lifestyle:regular exercise; limiting/avoiding salt Medications:taking medications as directed; no side effects from medication 48 y/o F here for f/u.Pt states she was sick for a couple days where she was vomiting and could not keep anything down. She is doing better now. She was in a biggest loser challenge at work, so weight loss was intentional.Denies SOB, CP, [place], N/V/D at this time.Is c/o mid epigastric pain that started after the vomiting. JEREMY POTTER PA-C Attn: Accounting[address] [facility], [place], [address], [facility] 09/08/2024 10:04:00 12/10/2024 text/html This is a 49 y/o female here today for right shoulder pain and medication f/u. Today she has complaints of right shoulder pain, Denies trauma, working out profusely, redness, swelling. Has been occurring for 2 months, aching pain, that gets worse throughout the day. She is taking Tylenol 500 mg rapid release and Tylenol precise lidocaine lotion at night, which she notes helps the pain. Pain severity at its worst is a 6/10. Active lifestyle with water weights normally but she has not been working out due to the pain. 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 She notes that this has happened to her left shoulder and physical therapy helped the pain. She has been doing her PT exercises at home for the right shoulder but it has not helped. Hurts with movement. She recently ran out of her pantaprazole 40 mg tablet and has been taking leftover omeprazole 20 mg tablets. Notes GERD is well controlled. She notes she received a message to stop her phentermine indefinitely due to her liver enzymes being elevated last lab work. Per telecommunication note, the phentermine was supposed to be stopped for just a few days for liver rest. Notes she has not been working out due to shoulder pain. Denies chest pain, fever, chills, N/V/D, weight loss, night sweats. JEREMY POTTER PA-C Attn: Accounting[address] [place], [address], [facility] 12/10/2024 14:19:34 OBGyn Episode No OBEpisode recorded.
--- OUTSIDE RECORDS SUMMARY | 2024-12-19 16:33 | XMS_ITS | Clinical Summary ---
Author Organization [facility] Address [address] [place] [address] Care Team Providers Care Tug Master Name Role Phone RosarioKeithalia Rivas APRN-ROLL SCALE WORKER Primary Care Provider [phone] Source Comments [facility],non-owned Affiliates and Associated Physician Practices is amultiple site organization consisting of ambulatory clinics and hospital sitesin [place], [place], [place] and [place]. This disclosure is being madepursuant to the Care Everywhere program and may not contain all information available regarding this patient. Last updated 18.[facility] Allergies No known active allergies Medications * Be aware that medications may not be up to date on this document. Alwaysverify current medications with the patient. Medication Sig Dispensed Refills Start Date End Date Status hydrocortisone (HYTONE) 1 % cream 30 gm, apply to area twice a day 11/05/2017 Active cyanocobalamin (VITAMIN B-12) 1000 MCG tablet Take 1,000 mcg by mouth once daily Active Montrose-3 1000 MG Take 1,000 mg by mouth Active Acetaminophen 325 MG CAPS Take 325 mg by mouth Active Multiple Vitamins-Minerals (MULTI FOR HER) CAPS Take 500 mg by mouth Active naproxen sodium (ALL DAY RELIEF) 220 MG tablet TAKE 1 TABLET DAILY NEEDED FOR PAIN 90 tablet 3 05/05/2019 Active fluticasone propionate (FLONASE) 50 MCG/ACT nasal sprayIndications:Sea shawanda allergies USE 1 SPRAY IN EACH NOSTRIL TWICE A DAY 16 g 11 12/09/2021 Active lisinopril (PRINIVIL; ZESTRIL) 10 MG tabletIndications:Es sential hypertension Take 1 (one) tablet by mouth once daily 90 tablet 3 12/20/2021 Active Calcium Carb-Cholecalciferol (CALCIUM 1000 + D) 1000-800 MG-UNIT Active Ascorbic Acid (VITAMIN C) 100 MG Active vitamin D3 (CHOLECALCIFEROL) 25 MCG (1000 UNITS) tablet Take by mouth once daily Active Zinc 100 MG Active polyethylene glycol (GOLYTELY) 236 g solution Drink 1/2 of prep at 5pm the night before test. Finish the prep at 4am the day of test. 4000 mL 03/09/2022 Active Dextromethorphan-gua iFENesin (MUCINEX DM PO) Active escitalopram (LEXAPRO) 10 MG tabletIndications:An xiety and depression Take 1 (one) tablet by mouth once daily 90 tablet 3 04/12/2022 Active albuterol HFA (PROAIR HFA) 108 (90 Base) MCG/ACT inhaler Inhale 2 (two) puffs by mouth every 4 hours as needed 8.5 g 3 04/12/2022 Active cetirizine (ZYRTEC) 10 MG tablet Take 1 (one) tablet by mouth once daily 90 tablet 4 04/12/2022 Active buPROPion SR 12hr (Wellbutrin-SR) 150 MG tabletIndications:De pression with anxiety TAKE 1 TABLET TWICE A DAY 180 tablet 3 06/19/2022 Active omeprazole (PriLOSEC) 20 MG capsule TAKE 1 CAPSULE DAILY BEFORE BREAKFAST 90 capsule 3 08/01/2022 Active Active Problems Problem Noted Date Diagnosed Date Anxiety and depression 02/13/2018 Gastroesophageal reflux disease 02/13/2018 Chronic pain of left knee 02/13/2018 REM sleep behavior disorder 10/28/2017 Sleep related gastroesophageal reflux disease Sleep related leg cramps 10/28/2017 Sleep talking 10/28/2017 Primary insomnia 08/14/2017 Allergic rhinitis 10/05/2014 Depression with anxiety 10/05/2014 Gastroesophageal reflux disease without esophagi tis 10/05/2014 Obesity 10/05/2014 Overview (04/16/2018): Overview: 10/01, BMI 41 Immunizations Name Administration Dates Next Due Covid Moderna primary monovalent 12+ yr 0.5mL ,10/20/2020 INFLUENZA VACCINE, QUADR. (F LUZONE; FLULAVAL; FLUARIX; AFLURIA QUADRIVALENT; 6MO+), 0.5 ML (IIV4) 07/28/2019,05/13/2018 Influenza Intradermal 08/14/2017,10/05/2014 TDAP (7yrs+) 10/05/2014 iNFLUENZA VACCINE, RECOM-HARRINGTON, QUADR. (FLUBLOCK QUADRIVALENT; 18Y+) (RIV4) 08/11/2020 Family History Medical History Relation Name Comments None Known Daughter Cancer - Lung Father Hypertension Father None Known Maternal Aunt None Known Maternal Grandfather None Known Maternal Grandmother None Known Maternal Uncle CVA Mother Diabetes - Type 2 Mother Heart Failure Mother Cancer - Ovarian Paternal Aunt None Known Paternal Grandfather Cancer - Breast Paternal Grandmother None Known Paternal Uncle CAD (Coronary Artery Disease) Sister Asthma Neg Hx Cancer - Other Neg Hx Cancer - Skin, Melanoma Neg Hx Cancer - Skin, Non Melanoma Neg Hx Eczema Neg Hx Hemophilia Neg Hx Psoriasis Neg Hx Relation Name Status Comments Daughter Alive Father Maternal Aunt Maternal Grandfather Maternal Grandmother Maternal Uncle Mother Paternal Aunt Paternal Grandfather Paternal Grandmother Paternal Uncle Sister Social History Tobacco Use Types Packs/Day Years Used Date Smoking Tobacco: Former Cigarettes 0.5 16 1 992 - 2007 Smokeless Tobacco: Never Tobacco Cessation:Counseling Given: No Alcohol Use Standard Drinks/Week Comments Yes 0 (1 standard drink = 0.6 oz pur e alcohol) 4-5/month AUDIT-C Answer Date Recorded Q1: How often do you have a drink containing alc ohol? Monthly or less 03/10/2022 Q2: How many drinks containi ng alcohol do you have on a typical day when you are drinking? 1 or 2 03/10/2022 Q3: How often do you have si x or more drinks on one occasion? Never 03/10/2022 PHQ-2 Answer Date Recorded PHQ2 TOTAL SCORE 1 01/16/2022 Sex and Gender Information Value Date Recorded Sex Assigned at Female 01/17/2022 9:10 AM CDT Gender Identity Female 01/17/2022 9:10 AM CDT Sexual Orientation Straight 01/17/2022 9: 10 AM CDT Last Filed Vital Signs Vital Sign Reading Time Taken Comments Blood Pressure 155/93 03/10/2022 3:45 PM CDT Pulse 76 03/10/2022 3:45 PM CDT Temperature 36.4 C (97.6 F) 03/10/2022 3:17 PM CDT Respiratory Rate 11 03/10/2022 3:45 PM CDT Oxygen Saturation 96% 03/10/2022 3:45 PM CDT Inhaled Oxygen Concentration - - Weight 108.3 kg (238 lb 11.2 oz) 03/10/2022 1:33 PM CDT Height 160 cm (5' 3 ) 03/10/2022 1:33 PM CDT Body Mass Index 42.28 03/10/2022 1:33 PM CDT Plan of Treatment Health Maintenance Due Date Last Done Comments COLOGUARD (AGES 45-75) - COLON CA SCREENING 1973 CT COLONOGRAPHY - COLON CA SCREENING 1975 FIT - COLON CA SCREENING 1975 FLEX SIG - COLON CA SCREENING 1973 HEPATITIS B VACCINE (1 of 3 - 19+ 3-dose series) 1992 MAMMOGRAM 09/08/2023 09/08/2021, 07/19, 04/17/2019, Additional history exists PNEUMOCOCCAL VACCINE 50+ (1 of 1 - PCV) 2023 ZOSTER VACCINE (1 of 2) 2023 COVID-19 VACCINE (3 - 2023- season) 2024 12/02/2020, 10/20/2020 INFLUENZA VACCINE (#1) 2024 0, 07/28/2019, 05/13/2018, Additional history exists DEPRESSION SCREENING 09/17/2024 02/15/2022, 11/09/19 22 DTAP/TDAP/TD VACCINES (2 - Td or Tdap) 10/05/2024 10/05/2014 SCREENING FOR DIABETES 11/07/2024 2, 11/07/2021, 07/20/2020, Additional history exists LIPID TESTING 11/07/2026 11/07/2021, 1111/2019, 03/18/2019, Additional history exists COLON MONITORING 03/10/2032 03/10/2022, 03/10/2022 COLONOSCOPY - COLON CA SCREENING 03/10/2032 03/10/2022, 03/10/2022 Colorectal Cancer Screening 03/10/2032 HEPATITIS C SCREENING Completed 11/07/2021 HIV SCREENING Completed 11/07/2021, 02/13/2018 HIB VACCINE Aged Out No longer eligi ble based on patient's age to complete this topic HPV VACCINE Aged Out No longer eligi ble based on patient's age to complete this topic MENINGOCOCCAL (Group B) VACCINE SHARED DECISION-MAKING Aged Out No longer eligible based on patient's age to complete this topic MENINGOCOCCAL GROUPS A/C/Y/W VACCINE Aged Out No longer eligible based on patient's age to complete this topic PAP SMEAR Discontinued PNEUMOCOCCAL VACCINE Aged Out No long er eligible based on patient's age to complete this topic Procedures Procedure Name Priority Date/Time Associated Diagnosis Comments ENDOSCOPY, COLON, SCREENING Routine 03/10/2022 2:49 PM CDT COMPREHENSIVE METABOLIC PANEL Routine 11/07/2021 8:38 AM SWITCHBOARD OPERATOR Healthcare maintenance LIPID PROFILE Routine 11/07/2021 8:38 AM SWITCHBOARD OPERATOR Healthcare maintenance HEPATITIS C ANTIBODY Routine 11/07/2021 8:38 AM SWITCHBOARD OPERATOR Healthcare maintenance HIV-1 HIV-2 ANTIBODY + HIV P24 AG PANEL Routine 11/07/2021 8:38 AM SWITCHBOARD OPERATOR Healthcare maintenance MAMMO BILAT SCREENING W SUSY Routine 09/08/2021 7:38 AM SWITCHBOARD OPERATOR Screening breast examination from Last 3 Months or Most Recently Relevant to Health Maintenance Results * ENDOSCOPY, COLON, SCREENING (03/10/2022 2:49 PM CDT) Report Endoscopy POC Endoscopy Department Report _ Patient Name: Christine Juarez Procedure Date: 03/10/2022 2:49 PM Date of : 1975 Classification: Outpatient Gender: Female Ethnicity: Not or Race: White _ Providers: Errol Mccoy Referring MD: Procedure: Colonoscopy Indications: Screening for colorectal malignant neoplasm Medications: Monitored Anesthesia Care Description of Procedure: After I obtained informed consent, the scope was passed under direct vision. Throughout the procedure, the patient's blood pressure, pulse, and oxygen saturations were monitored continuously. The PCF-[id number] was introduced through the anus and advanced to the terminal ileum. The colonoscopy was performed without difficulty. The patient tolerated the procedure well. The quality of the bowel preparation was good. Findings: A small polyp was found in the transverse colon. The polyp was semi-sessile. The polyp was removed with a jumbo cold forceps. Resection and retrieval were complete. Many large-mouthed diverticula were found in the left colon. Internal hemorrhoids were found during retroflexion. The hemorrhoids were small. Estimated Blood Loss: Estimated blood loss: none. Complications: No immediate complications. Impression: - One small polyp in the transverse colon, removed with a jumbo cold forceps. Resected and retrieved. - Diverticulosis in the left colon. - Internal hemorrhoids. Recommendation: - Patient has a contact number available for emergencies. The signs and symptoms of potential delayed complications were discussed with the patient. Return to normal activities tomorrow. Written discharge instructions were provided to the patient. - If the pathology report reveals adenomatous tissue, then repeat the colonoscopy for surveillance in 7 years. - If the pathology report reveals no adenomatous tissue, then repeat the colonoscopy for screening purposes in 10 years. Attending Participation: I personally performed the entire procedure. Procedure Code(s): --- Professional --- 03147, Colonoscopy, flexible; with biopsy, single or multiple Diagnosis Code(s): --- Professional --- Z12.11, Encounter for screening for malignant neoplasm of colon K63.5, Polyp of colon K64.8, Other hemorrhoids K57.30, Diverticulosis of large intestine without perforation or abscess without bleeding CPT copyright 2019 [employer]. All rights reserved. The codes documented in this report are preliminary and upon email deployment specialist review may be revised to meet current compliance requirements. Errol Mccoy, 03/10/2022 3:14:09 PM Note Initiated On: 03/10/2022 2:49 PM Number of Addenda: [address] [address] [facility] 03/10/2022 2:49 PM CDT Errol Mccoy MD GI PROCEDURE ORDERAB LES [facility] * HIV-1 HIV-2 ANTIBODY + HIV P24 AG PANEL (11/07/2021 8:38 AM SWITCHBOARD OPERATOR) Pathologist [facility] HIV Antigen/Antibod y 1 & 2 Non-reacti ve Non-react mikel 11/07/2021 9:28 AM SWITCHBOARD OPERATOR [facility] Comment:No Laboratory eviden ce of HIV infection. Blood BLOOD SPECIMEN / Unknown Lab Venipuncture / Unknown 11/07/2021 8:38 AM SWITCHBOARD OPERATOR 11/07/2021 8:47 AM SWITCHBOARD OPERATOR Lashonda Ponce WIRE CUTTER-ROLL SCALE WORKER LAB - CHEMISTRY OR DERABLES Performing Organization Address City/[facility]/ZIP Co de Phone Number [address] [address], [facility] [phone] * COMPREHENSIVE METABOLIC PANEL (11/07/2021 8:38 AM SWITCHBOARD OPERATOR) BUN 11 7 - 26 mg/dL 11/07/2021 9:39 AM SWITCHBOARD OPERATOR [facility] Creatinine 0.62 0.56 - 0.96 mg/dL 11/07/2021 9:39 AM [facility] Sodium 145 136 - 145 mmol/L 11/07/2021 9:39 AM [facility] Potassium 4.4 3.5 - 4.5 mmol/L 11/07/2021 9:39 AM [facility] Chloride 106 98 - 107 mmol/L 11/07/2021 9:39 AM [facility] CO2 27 22 - 29 mmol/L 11/07/2021 9:39 AM [facility] Glucose 88 70 - 115 mg/dL 11/07/2021 9:39 AM [facility] Calcium 9.7 8.4 - 10.2 mg/dL 11/07/2021 9:39 AM [facility] Protein Total 7.1 6.0 - 8.3 g/dL 11/07/2021 9:39 AM [facility] Albumin 3.8 3.4 - 5.0 g/dL 11/07/2021 9:39 AM [facility] Bilirubin Total 0.4 0.2 - 1.2 mg/dL 11/07/2021 9:39 AM [facility] Alkaline Phosphatase 96 40 - 150 U/L 11/07/2021 9:39 AM [facility] ALT 23 5 - 55 U/L 11/07/2021 9:39 AM [facility] AST 17 5 - 34 U/L 11/07/2021 9:39 AM [facility] Anion Gap 16 8 - 18 11/07/2021 9:39 AM [facility] BUN/Creatinine Ratio 18 7 - 23 11/07/2021 9:39 AM [facility] Osmolality Calculated 299 270 - 300 mOsm/kg 11/07/2021 9:39 AM [facility] Albumin/Globulin Ratio 1.2 1.1 - 2.3 11/07/2021 9:39 AM [facility] eGFR by CKD-EPI >90 >=90 mL/min/1.7 3 m2 11/07/2021 9:39 AM [facility] Blood BLOOD SPECIMEN / Unknown Lab Venipuncture / Unknown 11/07/2021 8:38 AM [facility] 11/07/2021 8:51 AM SWITCHBOARD OPERATOR Lashonda Ponce WIRE CUTTER-ROLL SCALE WORKER LAB - CHEMISTRY OR DERABLES [address] [address], [facility] [phone] * HEPATITIS C ANTIBODY (11/07/2021 8:38 AM SWITCHBOARD OPERATOR) [facility] Hepatitis C Antibody Non-react mikel Non-reac tive 11/07/2021 9:28 AM [facility] Comment:Hepatitis C Antibody screen indicates no serologic evidence of past or current infection with Hepatitis C Virus. Patients with unexplained liver disease who are immunocompromised or suspected of having acute Hepatitis C infection may benefit from Nucleic Acid Test (BRIAN) for Hepatitis C Viral RNA to confirm Hepatitis C status. Blood BLOOD SPECIMEN / Unknown Lab Venipuncture / Unknown 11/07/2021 8:38 AM SWITCHBOARD OPERATOR 11/07/2021 8:47 AM SWITCHBOARD OPERATOR Lashonda Ponce [facility] LAB - CHEMISTRY OR DERABLES Performing Organization Address [facility]/ZIP Co de Phone Number [address] [address], [facility] [phone] * (ABNORMAL) LIPID PROFILE (11/07/2021 8:38 AM SWITCHBOARD OPERATOR) [facility] Cholesterol Total 198 <200 mg/dL 11/07/2021 9:39 AM [facility] HDL 67 >40 mg/dL 11/07/2021 9:39 AM [facility] Comment: ATP III Classification of HDL Cholesterol: <40 mg/dL: Considered a major risk factor. >60 mg/dL: Considered a negative risk factor. LDL Calculated 117(H) <100 mg/dL 11/07/2021 9:39 AM [facility] Comment: ATP III Classification of LDL Cholesterol: <100 mg/dL: Optimal 100 - 129 mg/dL: Near Optimal/Above Optimal 130 - 159 mg/dL: Borderline High 160 - 189 mg/dL: High >190 mg/dL: Very High Triglycerides 72 <150 mg/dL 11/07/2021 9:39 AM [facility] Comment: ATP III Classification of Triglycerides: <150 mg/dL: Normal 150 - 199 mg/dL: Borderline High 200 - 400 mg/dL: High >500 mg/dL: Very High Blood BLOOD SPECIMEN / Unknown Lab Venipuncture / Unknown 11/07/2021 8:38 AM SWITCHBOARD OPERATOR 11/07/2021 8:51 AM SWITCHBOARD OPERATOR Lashonda Ponce WIRE CUTTER-ROLL SCALE WORKER LAB - CHEMISTRY OR DERABLES Performing Organization Address City/State/[facility] Co de Phone Number [facility] [address] [address], [facility] [phone] * MAMMO BILAT SCREENING W SUSY (09/08/2021 7:38 AM SWITCHBOARD OPERATOR) Anatomical Region Laterality Modality Breast Bilateral Mammography 09/08/2021 9:54 AM SWITCHBOARD OPERATOR Impressions 09/08/2021 2:28 PM SWITCHBOARD OPERATOR IMPRESSION: No mammographic evidence of malignancy. RECOMMENDATION: Screening mammography in one year, pending no interval breast concerns. Patient will be notified of the results by lay letter. OVERALL ASSESSMENT: BI-RADS CATEGORY 1: NEGATIVE. Drafted by Lashonda Jensen DO (radiology physician). Dr. Don Olvera MD assisted in the interpretation of this exam. I, Dr. INGE JAMES M.D. have personally reviewed and interpreted this examination/study. This report was electronically signed by INGE JAMES M.D. on 09/08/2021 2:28 PM . Narrative 09/08/2021 2:28 PM SWITCHBOARD OPERATOR EXAMINATION: DIGITAL MAMMO BILAT SCREENING W SUSY AND WITH CAD DATE OF EXAM: 09/08/2021 7:38 AM HISTORY: Screening. RISK ASSESSMENT CALCULATION: Patient completed a breast cancer risk assessment during her appointment. Based upon the information she provided and her mammographic breast density, her lifetime risk of developing breast cancer is 5 % (Average Risk <15%; Intermediate / Moderate Risk 15-19%; High Risk > 20%). COMPARISON: Prior breast imaging studies back to 2017, with the most recent dated 08/11/2020. TECHNIQUE: Bilateral synthetic 2-D (C-view) digital mammogram images and bilateral digital breast tomosynthesis (3D) were obtained and reviewed in the craniocaudal and mediolateral oblique projections. A total of 4 images were obtained. Computer-aided detection (CAD) was utilized. BREAST PARENCHYMAL COMPOSITION: Category A: The breasts are almost entirely fatty. FINDINGS: There are no suspicious findings or evidence of malignancy on mammography. There is no significant change from the prior. Hank Emre Estuardotapandorian HUGO MAMMO ORDERAB LES from Last 3 Months or Most Recently Relevant to Health Maintenance Care Teams Tug Master Relationship Specialty Start Date End Date Lashonda Ponce APRN-CNP [address] [place] [address] PCP - General 10/24/21
== END 2024-12-19 16:23 | disposition home or self-care (01) ==
PROVIDERS: PCP Physician Assistant Medical; Visit Provider Physician Assistant Medical
DX: M25.511 Pain in right shoulder (principal)
CPT/HCPCS: 73030

== ENCOUNTER 2025-01-12 13:16 | Outpatient (CLI) | payer OTHER, SELFPAY ==
--- NOTE | ~2025-01-12 | MR_ITS ---
EXAMINATION: MR shoulder RT wo con DATE: 01/12/2025 13:55 INDICATION: Right shoulder pain TECHNIQUE: Magnetic resonance imaging (MRI) of the right shoulder was performed without intravenous c ontrast. Sequences included axial PD-weighted FS FSE, coronal oblique PD-weighted FS FSE, coronal obl ique T2-weighted FS FSE, sagittal PD-weighted FS FSE, and sagittal T1-weighted SE. COMPARISON: None. FINDINGS: Coracoacromial arch: The acromion undersurface is curved in morphology (type II). The coracoacromial ligament is normal. M oderate acromioclavicular osteoarthritis. Mild marrow edema at the lateral right clavicle surrounding a linear low signal intensity likely nondisplaced fracture line extending across the anterior corner of the lateral head of the clavicle. This extends to the acromioclavicular joint without evident fra cture gap or incongruity. Rotator cuff: Mild supraspinatus and infraspinatus tendinopathy. There is a small full-thickness tear measuring 7 m m AP and 8 mm medial to lateral at the posterior half of the superior facet footplate of the supraspi natus tendon. The teres minor tendon is normal. Mild subscapularis tendinopathy with very small longi tudinal split tear extending 6 mm medial to lateral from the central lesser tuberosity footplate of t he tendon. Normal rotator cuff muscle bulk and signal. Biceps tendon, glenoid labrum and glenohumeral cartilage: Long head of the biceps tendon is normal. Degenerative tearing of the 9:30-11:00 region of the mobile home park manager ior superior glenoid labrum. Glenohumeral cartilage is normal. Fluid: Physiologic amount of fluid in the glenohumeral joint and biceps tendon sheath. No loose osteochondr al bodies. Small amount of fluid in the subacromial/subdeltoid bursa consistent with mild bursitis. IMPRESSION: 1. Mild marrow edema at the lateral head of the clavicle surrounding a linear low signal intensity ag e-indeterminate likely nondisplaced fracture line. 2. Mild rotator cuff tendinopathy with small full-thickness tear of the distal supraspinatus tendon a nd very small longitudinal split tear at the distal subscapularis tendon. 3. Degenerative tearing of the posterior superior glenoid labrum. 0.4. Mild subacromial/subdeltoid bu rsitis. Reviewed, dictated and finalized at location B. IMPRESSION: 1. Mild marrow edema at the lateral head of the clavicle surrounding a linear l ow signal intensity age-indeterminate likely nondisplaced fracture line. 2. Mild rotator cuff tendinopathy with small full-thickness tear of the distal supraspinatus tendon and very small longitudinal split tear at the distal subsc apularis tendon. 3. Degenerative tearing of the posterior superior glenoid labrum. 0.4. Mild sub acromial/subdeltoid bursitis.
== END 2025-01-12 13:17 | disposition home or self-care (01) ==
PROVIDERS: PCP Physician Assistant Medical; Visit Provider Physician Assistant Medical
DX: M75.121 Complete rotator cuff tear or rupture of right shoulder, not specified as traumatic (principal); S43.431A Superior glenoid labrum lesion of right shoulder, initial encounter; M75.51 Bursitis of right shoulder; M89.8X1 Other specified disorders of bone, shoulder; X58.XXXA Exposure to other specified factors, initial encounter
CPT/HCPCS: 73221

== ENCOUNTER 2025-06-16 09:14 | Outpatient (CLI) | payer OTHER, SELFPAY ==
--- NOTE | ~2025-06-16 | US_ITS ---
Ultrasound abdomen complete Clinical History: generalized abd pain Comparison: None Technique: Complete abdominal sonography Findings: Liver: Normal size. Echogenic. No intrahepatic biliary ductal dilatation. Normal hepatopedal flow main portal vein Common Duct: 7 mm. Gallbladder: Removed. Pancreas: Visualized portions unremarkable. Kidneys: Unremarkable. Spleen: Mildly enlarged. Retrohepatic IVC: Unremarkable. IMPRESSION: 1. No acute findings. Reviewed, dictated and finalized at location R. IMPRESSION: 1. No acute findings.
--- OUTSIDE RECORDS SUMMARY | 2025-06-16 09:47 | XMS_ITS | Clinical Summary ---
Author Organization [facility] Address [address] [place] [phone] Care Team Providers Care Technical Customer Support Specialist Name Role Phone Unavailable Primary Care Provider Unavailabl e Social History Tobacco Use Types Packs/Day Years Used Date Smoking Tobacco: Never Assessed Comments Unknown Sex and Gender Information Value Date Recorded Sex Assigned at Not on file Legal Sex Female 11:35 AM FORGING DIE FINISHER Gender Identity Not on file Sexual Orientation Not on file Plan of Treatment Health Maintenance Due Date Last Done Comments Hepatitis C Virus (HCV) Screening 1975 TdaP Immunization 1975 Hepatitis B Immunization (1 of 3 - 19+ 3-dose series) 1992 Pap Smear 1994 Cervical Cancer Screening (CCS) 2003 HPV/Cotest 2003 Cologuard 2018 Colonoscopy 2018 Colorectal Cancer Screening 2018 Immunochemical Fecal Occult Blood 2018 Pneumococcal Immunization (5 0+ years) (1 of 1 - PCV) 2023 Zoster Immunization (1 of 2) 2023 Influenza Immunization (#1) 2025 SARS-COV-2 Immunization (3 - 2024- season) 2025 11/23/2020, 10/21/2020 Respiratory Syncytial Virus (RSV) Immunization (Adult) (1 - 1-dose 75+ series) 2048 Human Papillomavirus (HPV) Immunization Aged Out No longer eligible b ased on patient's age to complete this topic Meningococcal Immunization (ACWY) Aged Out No longer eligible b ased on patient's age to complete this topic Rotavirus Immunization Aged Out No lo nger eligible based on patient's age to complete this topic
== END 2025-06-16 09:15 | disposition home or self-care (01) ==
PROVIDERS: PCP Physician Assistant Medical; Visit Provider Physician Assistant Medical
DX: R10.84 Generalized abdominal pain (principal)
CPT/HCPCS: 76700